=== PATIENT | female | born 1965 | race Caucasian/White ===

== ENCOUNTER 2019-01-16 12:04 | Emergency (ER) | payer MEDICAID, SELFPAY ==
[2019-01-16] VITALS (23 sets, daily range): BP systolic 103–153; BP diastolic 65–119; PULSE 96–121; RESP 24; TEMP 36.7; O2SAT 91–98
--- NOTE | 2019-01-16 12:01 | ED.GENADUL_ITS ---
Discharge Plan Disposition Patient Disposition: HOME Condition: Stable Discharge Details Chief Complaint: GenMedical Clinical Impression: First degree burn, Strain of right knee and leg, Contusion of right hip Primary Care Provider: Ya Moreno ED Provider: Otilia Rojas Home Meds and New Rx's Prescriptions: Continued lorazepam 1 mg Tablet 1 mg PO DAILY RF: 0 bupropion HCl [Wellbutrin XL] 150 mg Tablet Extended Release 24 Hr 150 mg PO QAM RF: 0 cholecalciferol (vitamin D3) [Vitamin D3] 2,000 unit Capsule 2,000 unit PO DAILY RF: 0 metoprolol succinate 25 mg Tablet Extended Release 24 Hr 25 mg PO RF: 0 montelukast [Singulair] 10 mg Tablet 10 mg PO QPM RF: 0 loratadine [Claritin] 10 mg Tablet 10 mg PO DAILY RF: 0 tizanidine [Zanaflex] 2 mg Capsule 2 mg PRNRF: 0 dicyclomine [Bentyl] 10 mg/mL Solution 20 mg QID RF: 0 atorvastatin 20 mg Tablet 20 mg PO DAILY RF: 0 Discharge Instructions Instructions: Muscle Strain (ED), Superficial Burn (ED), Acute Wound Care (ED), Contusion in Adults (ED) Additional Instructions: Take Tylenol every 4 hours as needed and directed for pain. Take the oxycodone for pain not relieved with Tylenol. Wash the robledo with soap and water and pat dry and apply topical aloe daily. Apply topical antibiotic ointment twice daily if you develop any blisters or open wounds. Follow-up with your primary care doctor in 2 days for reevaluation. Return immediately to the emergency department if you develop any worsening or new concerning symptoms of fever, chills, worsening pain. Discharge Data Discharge Physician: Otilia Rojas Medical Decision Making 53-year-old female with history of chronic pain, hypertension, peptic ulcer disease, gastroparesis who presents with bilateral forearm thermal robledo due to spilling boiling water and right leg pain status post slip on water today. EMS noted heart rate to be 110s, remainder vitals within normal limits. Patient states she cannot take NSAIDs or aspirin due to history of PUD and gastroparesis. She has an approximately 2% surface area first-degree burn to left volar forearm with very minimal involvement of edge of palm of hand and approximately a 1.5% surface area first-degree burn to right volar forearm. No open wounds or blisters noted. Tenderness to palpation of right buttock right posterior thigh right posterior knee. No bony deformity noted. Neurovascularly intact. Superficial robledo to forearms were irrigated and Silvadene cream and nonadherent dressings applied. A right hip and pelvis, right femur, and right knee x-ray were negative for acute findings. Patient denied any relief with oxycodone p.o. and was given a dose of morphine and Valium p.o. and had relief of pain. Due to her chronic left shoulder pain, she did not want crutches or cane and requested a walker. Care management brought a walker and patient was able to ambulate. She was instructed on the importance of good wound care to her forearm wounds an d to apply topical antibiotic ointment if any signs of open wounds or blisters. She cannot take NSAIDs. She takes Wellbutrin, Ativan and Zanaflex at home. She was sent home with 3 tabs of oxycodone and requested zofran due to nausea with opioids. She is instructed to follow-up with a primary care doctor for reevaluation and to return here if worse. HPI General Mode of arrival: ambulatory . Date/Time Provider Initiated Documentation: 01/16/19 12:17 . Limitations to Documentation: no limitations . Information obtained by: patient . HPI Narrative: Patient is a 53-year-old female who presents with bilateral robledo to forearms and right leg pain status post fall this morning. Patient states she was carrying a heavy pot of boiling water which dropped and the boiling water spilled on her forearms and she then slipped and her R leg twisted backward and she fell onto her bottom and now she also has pain in her R hip, buttock, thigh and knee. She denies head injury, LOC, vomiting, neck pain, chest pain, abdominal pain or other extremity injury. Tetanus up-to-date. Patient has a history of chronic left shoulder pain due to shoulder surgery and states she is not supposed to be carrying heavy objects and feels that her left shoulder became weak while carrying the pot and that caused her to drop it. Related Data Home Medications Medication Instructions Recorded Confirmed atorvastatin 20 mg PO DAILY 01/16/19 01/16/19 bupropion HCl [Wellbutrin XL] 150 mg PO QAM 01/16/19 01/16/19 cholecalciferol (vitamin D3) 2,000 unit PO DAILY 01/16/19 01/16/19 [Vitamin D3] dicyclomine [Bentyl] 20 mg QID 01/16/19 01/16/19 loratadine [Claritin] 10 mg PO DAILY 01/16/19 01/16/19 lorazepam 1 mg PO DAILY 01/16/19 01/16/19 metoprolol succinate 25 mg PO 01/16/19 montelukast [Singulair] 10 mg PO QPM 01/16/19 01/16/19 tizanidine [Zanaflex] 2 mg PRN 01/16/19 Allergies Allergy/AdvReac Type Severity Reaction Status Date / Time NSAIDS (Non-Steroidal Allergy Unverified 01/16/19 12:19 Anti-Inflamma Penicillins Allergy Unverified 01/16/19 12:19 Review of Systems Review of Systems All systems reviewed & are unremarkable except as noted in HPI and below Constitutional Reports as per HPI, Denies chills and Denies fever(s) Eyes Denies blurry vision ENT Denies dizziness, Denies sore throat and Denies throat swelling Cardiovascular Denies chest pain and Denies dyspnea Respiratory Denies cough and Denies dyspnea Gastrointestinal Denies abdominal pain, Denies diarrhea and Denies vomiting Genitourinary Denies hematuria and Denies dysuria Musculoskeletal Denies back pain and Denies numbness Integumentary/Breasts Denies lesions and Denies rash Neurologic Denies dizziness, Denies focal weakness and Denies numbness Allergic/Immunologic Denies throat swelling [facility] Medical History Gastroparesis (Acute) History of IBS (Acute) Chronic pain syndrome (Chronic) HTN (hypertension) (Chronic) Peptic ulcer disease (Chronic) Surgical History History of tonsillectomy and adenoidectomy (Acute) H/O section (Chronic) H/O shoulder surgery (Chronic) History of appendectomy (Chronic) Social History Smoking/Tobacco Use Status: Current every day Tobacco Type: cigarettes Alcohol Intake: never Drug use: Never Do you feel safe at home: Yes Exam Const General: cooperative and healthy appearing Orientation: alert and awake [facility] Head: normal to inspection, no palpable skull fracture, normocephalic and atraumatic Head images: 1. Minimal erythema approximately 0.25% surface area first degree burn. Ears: hearing grossly normal bilaterally, external ears normal and TM's normal bilaterally General nose exam: external nose normal Face and sinus: normal facial exam Mouth: oral mucosae normal Teeth and gingiva: dentition normal Throat: posterior oropharynx normal Eyes General: appearance normal, both eyes and all related structures Eyelids: eyelids normal Pupils: PERRL EOM: EOM intact bilaterally Neck Neck: normal visual inspection Lymphatic: no lymphadenopathy noted Chest Chest: normal inspection of the chest Resp Effort & Inspection: normal respiratory effort and able to speak in complete sentences Auscultation: clear to auscultation bilaterally Cardio Rate: regular rate Rhythm: regular rhythm GI Inspection: normal to inspection Palpation: soft, not firm, no guarding, no hepatosplenomegaly, no masses and nontender Auscultation: normal bowel sounds Back/Spine/Pelvis Back: no CVA tenderness Skin General skin exam: no rashes or lesions noted Neuro General: alert and awake Cognition: normal cognition Speech: speech normal Gait: normal gait Motor: muscle tone normal throughout Sensory Exam: no sensory deficits noted Extrem General: normal to inspection, full ROM and normal capillary refill Elbow/forearm/wrist images: 1. Approximately 2% surface area first degree burn to L volar forearm proximal medial edge of palm of hand. No blisters or open wounds 2. Approximately 1.5% surface area first degree burn to R volar forearm. No involvement of hand. No blisters or open wounds. Other: Tenderness palpation of right buttock, right posterior thigh and right knee. No bony deformity noted. No right leg external rotation or shortening. Bilateral DP/PT pulses intact. Bilateral radial and ulnar pulses intact. Cap refill less than 2 seconds. Psych Appearance: grossly normal Mental Status: mental status grossly normal Speech and Movement: speech and movement normal Affect: normal affect Thought Process: normal
--- NOTE | 2019-01-16 12:17 | DI.RAD_ITS ---
SYMPTOM/DIAGNOSIS: S/P FALL, PAIN, ? FX RIGHT HIP AND PELVIS: Two views were obtained. There are mild degenerative changes of both hips. There is no evidence of acute fracture. RIGHT KNEE: Three views were obtained. No fracture is seen. RIGHT FEMUR: Four views were obtained. No fracture is seen.
[2019-01-16] MEDS: oxyCODONE 5 MG TAB PO (12:26)
[2019-01-16] MEDS: Normal Saline 1,000 ML 1000 ML IV (12:42)
[2019-01-16] MEDS: Ondansetron O.D.T. 4 MG TABEF (12:44)
[2019-01-16] MEDS: diazePAM 5 MG TAB PO (13:45)
--- NOTE | 2019-01-16 14:14 | DI.VRAD_ITS ---
EXAM: XR Right Femur EXAM DATE/TIME: 01/16/2019 12:21 PM CLINICAL HISTORY: 53 years old, female; Other: S/P fall, R/O acute fracture TECHNIQUE: Imaging protocol: XR Right femur. Views: 2 views. COMPARISON: No relevant prior studies available. FINDINGS: Bones/joints: No acute bony injury or malalignment. Mild degenerative change. Soft tissues: Calcification at the quadriceps tendon attachment sites. Gastrointestinal tract: Prominent stool. IMPRESSION: No acute bony injury or malalignment. Dictated and Authenticated by: Vishnu Loredo MD. Ordering:FELICIANO Bingham MD
--- NOTE | 2019-01-16 14:14 | DI.VRAD_ITS ---
EXAM: XR Right Knee EXAM DATE/TIME: 01/16/2019 12:21 PM CLINICAL HISTORY: 53 years old, female; Other: S/P fall, R/O acute fracture TECHNIQUE: Imaging protocol: XR Right knee. Views: 3 views. COMPARISON: No relevant prior studies available. FINDINGS: Bones/joints: No acute bony injury or malalignment. Soft tissues: 2 mm medial soft tissue calcification. IMPRESSION: No acute bony injury or malalignment. Dictated and Authenticated by: Vishnu Loredo MD. Ordering:FELICIANO Bingham MD
--- NOTE | 2019-01-16 14:15 | DI.VRAD_ITS ---
EXAM: XR Pelvis EXAM DATE/TIME: 01/16/2019 12:21 PM CLINICAL HISTORY: 53 years old, female; Other: S/P fall, R/O acute fracture TECHNIQUE: Imaging protocol: XR pelvis. Views: 1 or 2 view. COMPARISON: CR BILATERAL HIPS ADULT 08/03/2013 2:44 PM FINDINGS: Bones/joints: No acute bony injury or malalignment. Mild degenerative change. Soft tissues: Calcification at the gluteal muscle attachment sites. Gastrointestinal tract: Prominent stool. Vasculature: Vascular calcification. IMPRESSION: No acute bony injury or malalignment. Dictated and Authenticated by: Vishnu Loredo MD. Ordering:FELICIANO Bingham MD
--- NOTE | 2019-01-16 14:50 | PDOC.ERCMPRO ---
- If Service Date Differs Date of service: 01/16/19 Time of Service: 14:50 Care Management Progress Note S/O: CM met with Beverley at the bedside both of her arms are bandaged and she states she has pain in her right leg r/t injury at home. She is in need of FWW at the request of ED provider CM filled FWW through [employer]. Pt states she has other equipment through [employer] and this is her DME company of choice. CM reviewed insurance benefits with the patient and cost of the FWW. Pt agrees and FWW was provided. CM updated provider and nurse who will adjust the walker to pt height. Pt states she has transportation home. Pt states she has lots of support at home and feels comfortable being discharged without additional services. P: Discharged home with FWW coordinated by CM through [employer]. No other CM services required at this time.
--- NOTE | 2019-01-16 14:56 | CMPROGNOTE_ITS ---
- If Service Date Differs Date of service: 01/16/19 Time of Service: 14:50 Care Management Progress Note S/O: CM met with Beverley at the bedside both of her arms are bandaged and she states she has pain in her right leg r/t injury at home. She is in need of FWW at the request of ED provider CM filled FWW through [employer]. Pt states she has other equipment through [employer] and this is her DME company of choice. CM reviewed insurance benefits with the patient and cost of the FWW. Pt agrees and FWW was provided. CM updated provider and nurse who will adjust the walker to pt height. Pt states she has transportation home. Pt states she has lots of support at home and feels comfortable being discharged without additional services. P: Discharged home with FWW coordinated by CM through [employer]. No other CM services required at this time.
[2019-01-16] MEDS: oxyCODONE 5 MG TAB 15 MG PO (15:16)
[2019-01-16] MEDS: Ondansetron O.D.T. 4 MG TABEF 12 MG PO (15:17)
== END 2019-01-16 15:29 | disposition home or self-care (01) ==
PROVIDERS: Emergency Provider Physician Assistant; PCP Nurse Practitioner Family
DX: T22.111A Burn of first degree of right forearm, initial encounter (principal); T22.112A Burn of first degree of left forearm, initial encounter; I10 Essential (primary) hypertension; T31.0 Burns involving less than 10% of body surface; X12.XXXA Contact with other hot fluids, initial encounter; S70.01XA Contusion of right hip, initial encounter; S76.911A Strain of unspecified muscles, fascia and tendons at thigh level, right thigh, initial encounter; W01.0XXA Fall on same level from slipping, tripping and stumbling without subsequent striking against object, initial encounter
CPT/HCPCS: 16000; 73552; 73562; 96361; 96374; 99284; 72170; 99282

== ENCOUNTER 2019-11-17 09:43 | Emergency (ER) | payer MEDICAID, SELFPAY ==
[2019-11-17] VITALS (39 sets, daily range): BP systolic 96–159; BP diastolic 54–101; PULSE 75–117; RESP 8–22; TEMP 36.7–37.2; O2SAT 91–99
--- NOTE | 2019-11-17 09:54 | W.ED.GENAD ---
Discharge Plan Disposition Patient Disposition: HOME Condition: Stable Discharge Details Chief Complaint: SOB Clinical Impression: Acute bronchitis Primary Care Provider: Eden Davila ED Provider: Otilia Rojas Home Meds and New Rx's Prescriptions: New prednisone 20 mg tablet See Rx Instructions .ROUTE .COMPLEX Qty: 12 RF: 0 levofloxacin [Levaquin] 750 mg tablet 750 mg PO DAILY 5 Days Qty: 5 RF: 0 benzonatate [Tessalon Perles] 100 mg capsule 100 mg PO TID PRN (Reason: cough) Qty: 14 RF: 0 Continued lorazepam 1 mg Tablet 1 mg PO DAILY RF: 0 bupropion HCl [Wellbutrin XL] 150 mg Tablet Extended Release 24 Hr 150 mg PO QAM RF: 0 cholecalciferol (vitamin D3) [Vitamin D3] 2,000 unit Capsule 2,000 unit PO DAILY RF: 0 metoprolol succinate 25 mg Tablet Extended Release 24 Hr 25 mg PO RF: 0 loratadine [Claritin] 10 mg Tablet 10 mg PO DAILY RF: 0 atorvastatin 20 mg Tablet 20 mg PO DAILY RF: 0 loperamide 2 mg Tablet 2 mg PO Q4H PRNRF: 0 ondansetron 4 mg tablet,disintegrating RF: 0 esomeprazole magnesium [Nexium] 20 mg Capsule,Delayed Release(Dr/Ec) 40 mg PO DAILY RF: 0 albuterol sulfate [ProAir HFA] 90 mcg/actuation HFA aerosol inhaler INHALATION RF: 0 escitalopram oxalate 20 mg tablet RF: 0 cyclobenzaprine 5 mg tablet RF: 0 Trelegy Ellipta 100-62.5-25 mcg blister with device INHALATION RF: 0 Aimovig Autoinjector 140 mg/mL Auto-Injector SUBCUT RF: 0 Discharge Instructions Instructions: Acute Bronchitis (ED) Additional Instructions: Use your albuterol inhaler that you have at home as needed and directed for cough or shortness of breath. Alternate tylenol and motrin as needed and directed for pain or fever. Take the steroids and antibiotics until finished. Call your primary care doctor's office tomorrow to schedule a follow-up appointment for reevaluation. Return to the emergency department if you develop any worsening or new concerning symptoms. Stand Alone Forms: PENDING COVID-19 TESTING Discharge Data Discharge Physician: Otilia Rojas Medical Decision Making 1000 -- 54-year-old female with history of COPD, tobacco smoking, hypertension, chronic pain syndrome presents for fever, cough, chest pain and shortness of breath for 3 weeks, worse over the past 6 days. Treated with steroids and antibiotics with some relief recently. She is chronically on Zithromax for the past year. She uses 1 L O2 occasionally at night for her COPD. BP mildly hypertensive. Heart rate 110s. Remainder vitals within normal limits. Oxygen saturation normal on room air. She is hoarse but speaking in full sentences. Differential diagnosis includes bronchitis, pneumonia, COVID-19, ACS, PE. Will check screening labs, CT chest abdomen and pelvis, give neb, Solu-Medrol and fluids. EKG notes a rate of 109, sinus with no acute ST ischemic changes. 1300 --labs reviewed. Normal white blood cell count, coagulation studies, electrolytes. Troponin negative. BNP unremarkable at 303. Patient reassessed -she admits to some improvement after first neb. O2 sat 92 to 94%. She still has diminished breath sounds throughout. Will give another neb and reassess. CT pending. 1415 --CT negative. Patient reassessed -she feels much better and is requesting to go home. O2 saturation 97% on room air. Lung sounds improved. As she is a smoker, will treat with Levaquin in addition to steroids and cough medication. She has albuterol at home. Advised to follow up with the primary care doctor for re-evaluation. Usual and customary return precautions given prior to discharge. She was advised that COVID-19 testing still pending and she will be notified of results. Medical Records Medical records reviewed: Yes I reviewed the patient's medical records. Imaging Data Radiologic Study: Radiologist's impression: CT CHEST PE ABD PELVIS W CLINICAL HISTORY: cough, sob, chest pain, vomiting, upper abd pain. TECHNIQUE: Imaging Protocol: Axial CT angiography was performed with multi-slice acquisition and multi-planar and/or 3D reconstructions. CONTRAST MATERIAL: Intravenous: Omnipaque 350 Contrast volume:100 ml COMPARISON: CHEST 2 VIEWS PA,LAT from 10/08/2010 FINDINGS: Pulmonary Arteries: No evidence of filling defect to suggest pulmonary emboli. Enlarged main pulmonary artery with the a diameter of 3.6 cm. The main pulmonary arteries also appear prominent. Tracheobronchial tree: Patent where visualized. Mediastinum and Nkechi: No dominant adenopathy or fluid collection. Pulmonary parenchyma: No consolidation or dominant measurable mass. There is mild interstitial thickening seen in the upper lobes. Pleura: No effusion or pneumothorax. Heart: The heart is not dilated. No coronary artery calcifications are seen. Aorta: Thoracic aorta non-dilated. Mild calcification. Upper abdomen: Unremarkable. Bones: Degenerative disc changes. Abdomen pelvis: The patient is status post cholecystectomy. The liver, spleen, pancreas and adrenals are unremarkable. There are small renal cysts. No stones or hydronephrosis is seen. There is no bowel dilatation or inflammatory change. The bladder is unremarkable. The patient is status post hysterectomy. The aorta is calcified and normal in diameter. Degenerative disc changes are seen in the lumbar spine. IMPRESSION: No acute abnormality is seen in the chest abdomen or pelvis. No evidence of pulmonary embolism. Lab Data Lab results reviewed: Yes I reviewed the patient's lab results. Labs: 11/17/19 11:21 Blood Blood Culture - Pending 11/17/19 10:55 Tonsil - Not Specified Streptococcus Screen (CHALO) - Pending 11/17/19 11:07 Blood Blood Culture - Pending Laboratory Tests Range/Units 11/17/19 11/17/19 11/17/19 10:31 10:31 10:31 WBC (4.4-10.8) k/cumm 8.89 RBC (4.00-5.20) m/cumm 4.59 Hgb (12.0-15.5) g/dL 14.9 Hct (36.0-46.0) % 43.9 MCV (80-95) fL 95.6 H MCH (27.0-33.0) pg 32.5 MCHC (32.0-36.0) g/dL 33.9 RDW (11.7-14.6) % 13.9 Plt Count (130-400) x1000/uL 278 MPV (8.0-11.0) fL 9.0 Immature Gran % % 0.2 Neutrophils % 59.7 Lymphocytes % 29.6 Monocytes % 7.4 Eosinophils % 2.8 Basophils % 0.3 Absolute Neutrophils (1.2-6.7) k/cumm 5.30 Absolute Lymphocytes (1.2-3.4) k/cumm 2.63 Absolute Monocytes (0.11-0.7) k/cumm 0.66 Absolute Eosinophils (0.0-0.7) k/cumm 0.25 Absolute Basophils (0.0-0.2) k/cumm 0.03 PT (9.3-11.0) sec 10.4 INR (0.9-1.1) 1.0 APTT (21.0-31.4) sec 24.9 Sodium (136-145) mmol/L 138 Potassium (3.5-5.1) mmol/L 3.7 Chloride (98-107) mmol/L 101 Carbon Dioxide (21.0-32.0) mmol/L 26.5 Anion Gap (3-11) mmol/L 10.5 BUN (7-18) mg/dL 7 Creatinine (0.55-1.02) mg/dL 0.82 Estimated GFR/1.73 m2 (mL/min/1.73m2) >= 60.00 Glucose (74-106) mg/dL 132 H Lactate (0.6-1.4) mmol/L Calcium (8.5-10.1) mg/dL 9.2 Magnesium (1.8-2.4) mg/dL 1.9 Total Bilirubin (0.2-1.0) mg/dL 0.5 AST (15-37) U/L 18 ALT (14-59) U/L 35 Alkaline Phosphatase (46-116) U/L 78 Troponin I (<0.06) ng/Ml < 0.05 NT-Pro-B Natriuret Pep (<300) pg/mL 303 H Total Protein (6.4-8.2) g/dL 7.9 Albumin (3.4-5.0) g/dL 3.9 Lipase (73-393) U/L Range/Units 11/17/19 11/17/19 10:31 11:07 WBC (4.4-10.8) k/cumm RBC (4.00-5.20) m/cumm Hgb (12.0-15.5) g/dL Hct (36.0-46.0) % MCV (80-95) fL MCH (27.0-33.0) pg MCHC (32.0-36.0) g/dL RDW (11.7-14.6) % Plt Count (130-400) x1000/uL MPV (8.0-11.0) fL Immature Gran % % Neutrophils % Lymphocytes % Monocytes % Eosinophils % Basophils % Absolute Neutrophils (1.2-6.7) k/cumm Absolute Lymphocytes (1.2-3.4) k/cumm Absolute Monocytes (0.11-0.7) k/cumm Absolute Eosinophils (0.0-0.7) k/cumm Absolute Basophils (0.0-0.2) k/cumm PT (9.3-11.0) sec INR (0.9-1.1) APTT (21.0-31.4) sec Sodium (136-145) mmol/L Potassium (3.5-5.1) mmol/L Chloride (98-107) mmol/L Carbon Dioxide (21.0-32.0) mmol/L Anion Gap (3-11) mmol/L BUN (7-18) mg/dL Creatinine (0.55-1.02) mg/dL Estimated GFR/1.73 m2 (mL/min/1.73m2) Glucose (74-106) mg/dL Lactate (0.6-1.4) mmol/L 1.3 Calcium (8.5-10.1) mg/dL Magnesium (1.8-2.4) mg/dL Total Bilirubin (0.2-1.0) mg/dL AST (15-37) U/L ALT (14-59) U/L Alkaline Phosphatase (46-116) U/L Troponin I (<0.06) ng/Ml NT-Pro-B Natriuret Pep (<300) pg/mL Total Protein (6.4-8.2) g/dL Albumin (3.4-5.0) g/dL Lipase (73-393) U/L 130 ECG Data Attestation: I personally reviewed and interpreted this ECG (s) as follows: Interpretation: Rate of 109, sinus, no acute ST elevation or depression. VA 172. QTc 460. QRS 94. HPI General Mode of arrival: ambulatory. Date/Time Provider Initiated Documentation: 11/17/19 09:52. Limitations to Documentation: no limitations. Information obtained by: patient. HPI Narrative: Patient is a 54-year-old female with history of COPD, chronic pain syndrome who is a tobacco smoker presents for fever, cough, shortness of breath and chest pain over the past 3 weeks, worse over the past 6 days. Patient states she was treated by her PCP for bronchitis a few weeks ago with steroids and antibiotics and states the symptoms improved but worsened 6 days ago. She now also admits to vomiting and diarrhea. She states she has been vomiting mainly bile and diarrhea is watery brown. She admits to some upper abdominal pain which she assumes is from her vomiting. She states the symptom bothering her the most is the anterior chest pain and shortness of breath. She states her fever has been as high as 101 p.o. She denies any recent travel, known sick contacts or previous coronavirus testing. Related Data Home Medications Medication Instructions Recorded Confirmed atorvastatin 20 mg PO DAILY 01/16/19 11/17/19 bupropion HCl [Wellbutrin XL] 150 mg PO QAM 01/16/19 11/17/19 cholecalciferol (vitamin D3) 2,000 unit PO DAILY 01/16/19 11/17/19 [Vitamin D3] loratadine [Claritin] 10 mg PO DAILY 01/16/19 01/16/19 lorazepam 1 mg PO DAILY 01/16/19 11/17/19 metoprolol succinate 25 mg PO 01/16/19 Aimovig Autoinjector mg SUBCUT 11/17/19 Trelegy Ellipta INHALATION 11/17/19 albuterol sulfate [ProAir HFA] INHALATION 11/17/19 benzonatate [Tessalon Perles] 100 mg PO TID PRN #14 cap 11/17/19 cyclobenzaprine mg 11/17/19 escitalopram oxalate mg 11/17/19 esomeprazole magnesium [Nexium] 40 mg PO DAILY 11/17/19 11/17/19 levofloxacin [Levaquin] 750 mg PO DAILY 5 Days #5 tab 11/17/19 loperamide 2 mg PO Q4H PRN 11/17/19 11/17/19 ondansetron 11/17/19 prednisone See Rx Instructions .ROUTE 11/17/19 .COMPLEX #12 tab Previous Rx's Medication Instructions Recorded benzonatate [Tessalon Perles] 100 mg PO TID PRN #14 cap 11/17/19 levofloxacin [Levaquin] 750 mg PO DAILY 5 Days #5 tab 11/17/19 prednisone See Rx Instructions .ROUTE 11/17/19 .COMPLEX #12 tab Allergies Allergy/AdvReac Type Severity Reaction Status Date / Time NSAIDS (Non-Steroidal Allergy Unverified 01/16/19 12:19 Anti-Inflamma Penicillins Allergy Unverified 01/16/19 12:19 aspirin AdvReac Unverified 11/17/19 09:59 General KIERA: 3 Review of Systems All systems reviewed & are unremarkable except as noted in HPI and below Constitutional Constitutional: Reports as per HPI, Denies chills and Denies fever(s) Eyes Eyes: Denies blurry vision ENT Ears, Nose, Mouth, and Throat: Denies dizziness, Denies sore throat and Denies throat swelling Cardiovascular Cardiovascular: Reports chest pain and Reports dyspnea Respiratory Respiratory: Reports cough and Reports dyspnea Gastrointestinal Gastrointestinal: Denies abdominal pain, Denies diarrhea and Denies vomiting Genitourinary Genitourinary: Denies hematuria and Denies dysuria Musculoskeletal Musculoskeletal: Denies back pain and Denies numbness Integumentary/Breasts Skin/Breast: Denies lesions and Denies rash Neurologic Neurologic: Denies dizziness, Denies localized weakness and Denies numbness Allergic/Immunologic Allergic/Immunologic: Denies throat swelling [facility], [facility] Social History Smoking/Tobacco Use Status: Current every day Tobacco Type: cigarettes Alcohol Intake: never Drug use: Never Do you feel safe at home: Yes Do you feel safe in your relationship?: Yes Exam Const General: cooperative and no acute distress Orientation: alert, awake and oriented x3 HENMT Head: normal to inspection Ears: hearing grossly normal bilaterally, external ears normal and TM's normal bilaterally General nose exam: external nose normal Face and sinus: normal facial exam Mouth: oral mucosae normal Teeth and gingiva: dentition normal Throat: posterior oropharynx normal Eyes General: appearance normal, both eyes and all related structures Eyelids: eyelids normal Pupils: PERRL EOM: EOM intact bilaterally Neck Neck: normal visual inspection Lymphatic: no lymphadenopathy noted Chest Chest: normal inspection of the chest Resp Effort & Inspection: normal respiratory effort and able to speak in complete sentences Auscultation: diminished lung sounds bilaterally throughout Cardio Rhythm: regular rhythm GI Inspection: normal to inspection Palpation: soft, not firm, no guarding, no hepatosplenomegaly, no masses and tender in the epigastrum Auscultation: hypoactive bowel sounds Back/Spine/Pelvis Back: CVA tenderness (L side) Thoracic/Lumbar Spine: thoracic and lumbar spine normal to inspection Skin General skin exam: no rashes or lesions noted Neuro General: patient alert and patient awake Cognition: normal cognition Speech: speech normal Gait: normal gait Motor: muscle tone normal throughout Sensory Exam: no sensory deficits noted Extrem General: normal to inspection, full ROM, capillary refill normal and no edema Psych Appearance: grossly normal Mental Status: mental status grossly normal Speech and Movement: speech and movement normal Affect: normal affect Thought Process: normal
[2019-11-17 10:40] LABS: Abs Immature Grans 0.02 k/cumm (0.0-0.09); Absolute Basophil Count 0.03 k/cumm (0.0-0.2); Absolute Eosinophil Count 0.25 k/cumm (0.0-0.7); Absolute Lymphocyte Count 2.63 k/cumm (1.2-3.4); Absolute Monocyte Count 0.66 k/cumm (0.11-0.7); Basophils % 0.3; Eosinophils % 2.8; HCT 43.9 % (36.0-46.0); HGB 14.9 g/dL (12.0-15.5); Immature Grans % 0.2 %; Lymphocytes % 29.6; Mean Corp. HGB Concentration 33.9 g/dL (32.0-36.0); Mean Corpuscular Hemoglobin 32.5 pg (27.0-33.0); Mean Corpuscular Volume 95.6 fL (80-95); Monocytes % 7.4; Neutrophils % 59.7; Platelet Count 278 x1000/uL (130-400); RBC 4.59 m/cumm (4.00-5.20); RBC Distribution Width 13.9 % (11.7-14.6); White Blood Cell Count 8.89 k/cumm (4.4-10.8)
[2019-11-17 10:55] LABS: PTT Activated 24.9 sec (21.0-31.4); Prothrombin Time 10.4 sec (9.3-11.0)
[2019-11-17 11:04] LABS: ALT 35 U/L (14-59); AST 18 U/L (15-37); Albumin 3.9 g/dL (3.4-5.0); Alkaline Phosphatase 78 U/L (46-116); Anion Gap 10.5 mmol/L (3-11); BUN 7 mg/dL (7-18); Bilirubin, Total 0.5 mg/dL (0.2-1.0); CO2 26.5 mmol/L (21.0-32.0); CREATININE 0.82 mg/dL (0.55-1.02); Calcium 9.2 mg/dL (8.5-10.1); Chloride 101 mmol/L (98-107); Glucose 132 mg/dL (74-106); Magnesium 1.9 mg/dL (1.8-2.4); NT-proBNP 303 pg/mL (<300); Potassium 3.7 mmol/L (3.5-5.1); Sodium 138 mmol/L (136-145); Total Protein 7.9 g/dL (6.4-8.2); Troponin I < 0.05 ng/Ml (<0.06)
[2019-11-17 11:12] LABS: Lipase 130 U/L (73-393)
[2019-11-17 11:13] LABS: Lactate 1.3 mmol/L (0.6-1.4)
[2019-11-17] MEDS: Normal Saline 1,000 ML 1000 ML IV (11:27)
[2019-11-17] MEDS: methylPREDNISolone SUCC 125 MG VIAL IVP (11:28)
[2019-11-17] MEDS: Albuterol/Ipratropium 3 ML UPD VIAL UPD (11:28)
[2019-11-17] MEDS: ACETAMINOPHEN 1,000 MG/100 ML BTL 400 MG IVPB (11:28)
[2019-11-17] MEDS: Prochlorperazine 10 MG/2 ML VIAL IVP (11:29)
[2019-11-17] MEDS: Normal Saline - Diluent 50 ML VIAL IV (12:21)
[2019-11-17] MEDS: Omnipaque 350 MG/ML 100 ML BTL IJ (12:21)
--- NOTE | 2019-11-17 12:35 | DI.CT_ITS ---
EXAM: CT CHEST PE ABD PELVIS W CLINICAL HISTORY: cough, sob, chest pain, vomiting, upper abd pain. TECHNIQUE: Imaging Protocol: Axial CT angiography was performed with multi-slice acquisition and mu lti-planar and/or 3D reconstructions. CONTRAST MATERIAL: Intravenous: Omnipaque 350 Contrast volume:100 ml COMPARISON: CHEST 2 VIEWS PA,LAT from 10/08/2010 FINDINGS: Pulmonary Arteries: No evidence of filling defect to suggest pulmonary emboli. Enlarged main pulmonar y artery with the a diameter of 3.6 cm. The main pulmonary arteries also appear prominent. Tracheobronchial tree: Patent where visualized. Mediastinum and Nkechi: No dominant adenopathy or fluid collection. Pulmonary parenchyma: No consolidation or dominant measurable mass. There is mild interstitial thicke bobo seen in the upper lobes. Pleura: No effusion or pneumothorax. Heart: The heart is not dilated. No coronary artery calcifications are seen. Aorta: Thoracic aorta non-dilated. Mild calcification. Upper abdomen: Unremarkable. Bones: Degenerative disc changes. Abdomen pelvis: The patient is status post cholecystectomy. The liver, spleen, pancreas and adrenals are unremarkable. There are small renal cysts. No stones or hydronephrosis is seen. There is no b owel dilatation or inflammatory change. The bladder is unremarkable. The patient is status post hys terectomy. The aorta is calcified and normal in diameter. Degenerative disc changes are seen in the lumbar spine. IMPRESSION: No acute abnormality is seen in the chest abdomen or pelvis. No evidence of pulmonary embolism. RADIATION DOSE DELIVERED: Total DLP DATA REPOSITORY: All CT scans at this facility are submitted to the National Radiology Data Registry (NRDR) Dose Index Registry (DIR) with the [employer] (ACR). RADIATION OPTIMIZATION: All CT scans at this facility use at least one of these dose optimization te chniques: automated exposure control; mA and/or kV adjustment per patient size (includes targeted exa ms where dose is matched to clinical indication); or iterative reconstruction.
[2019-11-17] MEDS: Albuterol 2.5 MG/3 ML INH SOLN VIAL UPD (13:30)
[2019-11-18 16:02] LABS: COVID-19 RT-PCR Result Not Detected ((See Note))
== END 2019-11-17 14:43 | disposition home or self-care (01) ==
PROVIDERS: Emergency Provider Physician Assistant; PCP Registered Nurse
DX: J44.0 Chronic obstructive pulmonary disease with (acute) lower respiratory infection (principal); J20.9 Acute bronchitis, unspecified; F17.210 Nicotine dependence, cigarettes, uncomplicated; I10 Essential (primary) hypertension
CPT/HCPCS: 36415; 71275; 74177; 80053; 83690; 87040; 87880; 93005; 94640; 96361; 96374; 96375; 99285; U0003; 83605; 83735; 83880; 84484; 85025; 85610; 85730; 87081; 93010; 99284; J0131; J0780; J2930; J3490; J7613; J7620

== ENCOUNTER 2019-12-23 02:27 | Outpatient (CLI) | payer MEDICAID, SELFPAY ==
[2019-12-23 15:26] LABS: Abs Immature Grans 0.02 k/cumm (0.0-0.09); Absolute Basophil Count 0.03 k/cumm (0.0-0.2); Absolute Eosinophil Count 0.19 k/cumm (0.0-0.7); Absolute Lymphocyte Count 3.23 k/cumm (1.2-3.4); Absolute Monocyte Count 0.84 k/cumm (0.11-0.7); Absolute Neutrophil Count 5.84 k/cumm (1.2-6.7); Basophils % 0.3; Eosinophils % 1.9; HCT 44.6 % (36.0-46.0); HGB 15.2 g/dL (12.0-15.5); Immature Grans % 0.2 %; Lymphocytes % 31.8; Mean Corp. HGB Concentration 34.1 g/dL (32.0-36.0); Mean Corpuscular Hemoglobin 32.3 pg (27.0-33.0); Mean Corpuscular Volume 94.7 fL (80-95); Mean Platelet Volume 9.1 fL (8.0-11.0); Monocytes % 8.3; Neutrophils % 57.5; Platelet Count 307 x1000/uL (130-400); RBC 4.71 m/cumm (4.00-5.20); RBC Distribution Width 14.5 % (11.7-14.6); White Blood Cell Count 10.15 k/cumm (4.4-10.8)
[2019-12-23 15:58] LABS: Hemoglobin A1C 5.8 % (3.8-5.6)
[2019-12-23 16:17] LABS: ESR 15 mm/hr (0-30)
[2019-12-23 17:14] LABS: ALT 29 U/L (14-59); AST 20 U/L (15-37); Albumin 3.4 g/dL (3.4-5.0); Alkaline Phosphatase 72 U/L (46-116); Anion Gap 13.5 mmol/L (3-11); BUN 10 mg/dL (7-18); Bilirubin, Total 0.6 mg/dL (0.2-1.0); CO2 25.5 mmol/L (21.0-32.0); Calcium 8.7 mg/dL (8.5-10.1); Calculated LDL 71 mg/dL (<100); Chloride 104 mmol/L (98-107); Cholesterol 133 mg/dL (<200); Glucose 116 mg/dL (74-106); HDL Cholesterol 46 mg/dL (40-60); Magnesium 1.7 mg/dL (1.8-2.4); Sodium 143 mmol/L (136-145); Total Protein 6.5 g/dL (6.4-8.2); Triglyceride 82 mg/dL (<150)
[2019-12-23 18:23] LABS: Potassium 2.9 mmol/L (3.5-5.1)
[2019-12-27 16:50] LABS: Tissue Transglutaminase Ab IgA <1.2 U/mL
== END 2019-12-23 02:47 ==
PROVIDERS: PCP Registered Nurse; Visit Provider Registered Nurse
DX: R19.7 Diarrhea, unspecified (principal); R73.09 Other abnormal glucose; E78.5 Hyperlipidemia, unspecified
CPT/HCPCS: 36415; 80053; 80061; 85652; 83036; 83516; 83735; 85025

== ENCOUNTER 2019-12-23 18:55 | Emergency (ER) | payer MEDICAID, SELFPAY ==
[2019-12-23 19:09] VITALS: BP 153/82; PULSE 96; RESP 14; TEMP 36.6; O2SAT 96
--- NOTE | 2019-12-23 19:15 | DI.CT_ITS ---
EXAM: CT ABDOMEN PELVIS W CLINICAL HISTORY: diffuse abd pain, vomiting, diarrhea TECHNIQUE: Imaging Protocol: Axial computed tomography images with coronal and sagittal reformatted images were created and reviewed CONTRAST MATERIAL: Intravenous: Omnipaque 350 Contrast volume:100 mL Oral: No COMPARISON: CT CT CHEST PE ABD PELVIS W from 11/17/2019 FINDINGS: ABDOMEN: Lung Bases: Dependent atelectasis. Liver: Normal density. No measurable mass. Portal, Superior Mesenteric, and Splenic Veins: Unremarkable. Gallbladder and Biliary Tract: Status post cholecystectomy. Mildly dilated extrahepatic bile duct li rosalie reflecting post cholecystectomy state. Pancreas: Normal density, no abnormal calcifications or inflammatory process. Spleen: Normal. Adrenals: No masses seen. Kidneys: Normal size, contour and axis. No radiodense stones or obstructive uropathy. No masses seen. There is a new peripheral wedge-shaped area of decreased enhancement in the posterior aspect of the upper lobe of the left kidney. This was not present on the examination from 11/17/2019. There is a cy st in the left kidney. There is again seen a prominent right extrarenal pelvis. Abdominal Aorta: Abdominal portion non-dilated. Atherosclerosis. Bowel: No obstruction or bowel wall thickening. No evidence of acute appendicitis. Peritoneal Cavity: No ascites, collection or mesenteric inflammatory response. Lymph Nodes: Within normal limits. Bones: Degenerative changes in the spine. Soft Tissues: Unremarkable. PELVIS: Bladder: Symmetric distention, no gross wall thickening. Reproductive Organs: Status post hysterectomy. Lymph Nodes: Within normal limits. Bones: Degenerative changes in the spine. IMPRESSION: New area of decreased enhancement in the posterior superior aspect of the left kidney. This may repr esent renal infarct or focal pyelonephritis. Please correlate clinically. As this was not present o n the recent examination, mass is considered less likely. RADIATION DOSE DELIVERED: 917.07mGy.cm Total DLP DATA REPOSITORY: All CT scans at this facility are submitted to the National Radiology Data Registry (NRDR) Dose Index Registry (DIR) with the [employer] (ACR). RADIATION OPTIMIZATION: All CT scans at this facility use at least one of these dose optimization te chniques: automated exposure control; mA and/or kV adjustment per patient size (includes targeted exa ms where dose is matched to clinical indication); or iterative reconstruction.
--- NOTE | 2019-12-23 19:31 | ED.GENADUL_ITS ---
Discharge Plan Disposition Patient Disposition: HOME Condition: Good Discharge Details Chief Complaint: Abd Prob Clinical Impression: Abdominal pain, vomiting, and diarrhea, Acute hypokalemia, Kidney lesion Primary Care Provider: Eden Davila ED Provider: Flip Portillo Home Meds and New Rx's Prescriptions: No Action lorazepam 1 mg Tablet 1 mg PO BID RF: 0 bupropion HCl [Wellbutrin XL] 150 mg Tablet Extended Release 24 Hr 150 mg PO BID RF: 0 cholecalciferol (vitamin D3) [Vitamin D3] 2,000 unit Capsule 2,000 unit PO DAILY RF: 0 metoprolol succinate 25 mg Tablet Extended Release 24 Hr 25 mg PO AC RF: 0 loratadine [Claritin] 10 mg Tablet 10 mg PO DAILY RF: 0 atorvastatin 20 mg Tablet 20 mg PO HS RF: 0 azithromycin [Zithromax] 250 mg Tablet 250 mg PO DAILY RF: 0 loperamide 2 mg Tablet 2 mg PO PRN PRNRF: 0 acetaminophen [Tylenol 8 Hour] 650 mg Tablet Extended Release 650 mg PO BID RF: 0 ascorbic acid (vitamin C) [Vitamin C] 500 mg Tablet 500 mg PO DAILY RF: 0 esomeprazole magnesium [Nexium] 40 mg Capsule,Delayed Release(Dr/Ec) 40 mg PO AC RF: 0 magnesium 200 mg Tablet See Rx Instructions .ROUTE .COMPLEX RF: 0 escitalopram oxalate [Lexapro] 20 mg Tablet 20 mg PO DAILY RF: 0 Aimovig Autoinjector 140 mg/mL Auto-Injector See Rx Instructions .ROUTE .COMPLEX RF: 0 loperamide 2 mg Tablet 2 mg PO Q4H PRNRF: 0 ondansetron 4 mg tablet,disintegrating 4 mg PO BID PRNRF: 0 albuterol sulfate [ProAir HFA] 90 mcg/actuation HFA aerosol inhaler INHALATION RF: 0 escitalopram oxalate 20 mg tablet RF: 0 cyclobenzaprine 5 mg tablet RF: 0 Trelegy Ellipta 100-62.5-25 mcg blister with device INHALATION RF: 0 Aimovig Autoinjector 140 mg/mL Auto-Injector SUBCUT RF: 0 prednisone 20 mg tablet See Rx Instructions .ROUTE .COMPLEX Qty: 12 RF: 0 Discharge Instructions Instructions: Gastroenteritis (ED) Additional Instructions: At this time your CAT scan shows nothing life-threatening or surgical. There was the dilation of your right kidney which was likely from a passed kidney stone. There is also the atypical small lesion on your left kidney that is likely just a cyst but does require further work-up with renal ultrasound on an outpatient basis with your primary care provider. Please stick with a bland diet, eat bananas to help replace your potassium. If you notice any worsening of your symptoms, or any new symptoms such as vomiting, diarrhea, fever, chills, shortness of breath, chest pain, numbness, weakness, or fainting , please return immediately to the emergency department for reevaluation. Please follow up with your primary care provider as soon as possible for reassessment and reevaluation. As always, it was a pleasure participating in your medical care today. Referrals: Eden Davila [Primary Care Provider] - Medical Decision Making <Otilia Rojas DO - Last Filed: 12/23/19 20:14> 54-year-old female with history of hypertension, IBS, gastroparesis presents for vomiting, diarrhea and abdominal pain x 6 days. Outpatient labs today noted K 2.9. HR 90s, afebrile. She appears uncomfortable but nontoxic. Abdomen diffusely tender. Rectal exam noted brown stool and guaiac negative. Differential diagnoses includes gastroenteritis, colitis, diverticulitis, etc. Remainder of outpatient labs today noted a normal white blood cell count and electrolytes. Anion gap 13, Mg 1.7. Will place an IV, obtain a urinalysis, lipase, CT abdomen and pelvis, give a dose of morphine, Zofran, fluids and reassess. Case endorsed to Dr. Portillo to follow-up on labs and imaging and final disposition. Medical Records Medical records reviewed: Yes I reviewed the patient's medical records. <Flip Portillo DO - Last Filed: 12/23/19 22:24> EKG 20: 07 Sinus rhythm, rate 80, ID 112, QTc 475, QRS 94, sinus rhythm, with a slightly short ID but no evidence of delta wave whatsoever. Inverted T wave noted in V1 and V2, no significant ST depressions, no evidence of STEMI. Inversions appear to be new compared to prior EKG from 11/17/2019, however this may be due to the patient's low potassium. Patient was signed out to me by my colleague Dr. Otilia Rojas pending CT scan results, reassessment. CT scan results have returned, no evidence of acute surgical process noted per virtual radiology. There is evidence of right extrarenal pelvis is prominent, could be the result of a recent obstructive uropathy calculus having passed. Discussing this with the patient she does describe notable pain with urination recently but which is since resolved. I do suspect that she likely had a passed calculus. There is evidence of diminished enhancement of the left kidney which could represent a hypoenhancing mass or cyst or subacute infarct. Patient has no pain on the left-hand side. No indication for emergent management but the patient would benefit from follow-up with her PCP for further assessment and evaluation. At this time the patient is feeling much better, tolerating p.o. well, and feels good to go home. Patient's vital signs remained stable, no signs of acute process, I suspect that her symptoms likely from gastroenteritis gastritis. Potentially viral in etiology. Patient will be discharged home with close follow-up. Patient's troponin was negative, she describes as epigastric pain lasting for greater then 5 to 6 days, symptoms are inconsistent with cardiac etiology. 2 small T wave inversions have remained, but no other signs of abnormality, no STEMI, no elevation, no depression. No clinical signs of right heart strain. Denies PE risk factors such as recent long car rides, immobilization, recent surgery, prior history of DVT or PE, family history of PE or DVT, morbid obesity, exogenous estrogen and smoking, hemoptysis, history of cancer. No pitting edema, no chest pain, no chest tightness no shortness of breath. I did discuss continued observation, versus admission, versus discharge, and at this time through shared decision making process patient would like to go home and follow-up closely with her PCP. Discussed risks and benefits of this. Recommended bland diet, bananas, and close follow-up. I have extensively reviewed the treatment plan and discharge instructions with the patient. I have addressed all patient concerns at this time. The patient was made aware of what symptoms to monitor for that would warrant a return to the emergency department. Discussed the plan with the patient, they demonstrate verbal understanding and agreement with our assessment and plan at this time. EKG 20: 13 Rate 83, ID 112, QTc 472, sinus rhythm, slightly short ID, inverted T wave in V1 V2, no other acute changes, no evidence of STEMI, ST elevations or depressions, no other abnormalities. FINDINGS: Lungs: Subsegmental atelectasis and/or scarring in lingula and right middle lobe. Liver: Normal. No mass. Gallbladder and bile ducts: The patient is status post cholecystectomy. Minimal intra and extrahepatic biliary ductal dilatation. Pancreas: Pancreas appears normal. No ductal dilatation. Spleen: No splenomegaly. Adrenals: Normal adrenal glands. Kidneys and ureters: Irregularly-shaped, circumscribed area of diminished enhancement posterosuperiorly in upper pole of left kidney, measuring 2.7 cm. Too small to characterize subcentimeter hypoenhancing area or lesion in lower pole left kidney. No left hydronephrosis. Prominent extrarenal pelvis on the right. No obstructing right renal or ureteric calculi. No adenopathy. Stomach and bowel: The stomach is normal. No dilated loops of small bowel or c olonic dilatation. No bowel wall thickening or mucosal abnormalities. Appendix: No evidence of appendicitis. Intraperitoneal space: Unremarkable. No free air. No significant fluid collection. Vasculature: No aortic aneurysm or dissection. Atherosclerosis. Lymph nodes: See Kidneys and ureters finding. Bladder: Unremarkable as visualized. Reproductive: Prior hysterectomy. Bones/joints: The spine demonstrates mild degenerative changes at multiple levels. No acute fracture. Soft tissues: Unremarkable. IMPRESSION: 1. Prominent right extrarenal pelvis could be as a result of recent obstructive uropathy with calculus since passed. 2. Area of diminished enhancement left kidney could represent a hypoenhancing mass, irregularly shaped cyst or subacute infarct. Correlate with renal ultrasound. 3. Intra-and extrahepatic biliary ductal dilatation, most likely due to prior cholecystectomy and/or instrumentation of the biliary tract. Other etiologies not excluded. Correlation with serum bilirubin warranted. Thank you for allowing us to participate in the care of your patient. Dictated and Authenticated by: Paxton Westbrook DO 12/23/2019 8:57 PM Eastern Time ([place] & [place]) HPI <Otilia Rojas DO - Last Filed: 12/23/19 20:14> General Mode of arrival: ambulatory . Date/Time Provider Initiated Documentation: 12/23/19 18:58 . Limitations to Documentation: no limitations . Information obtained by: patient . HPI Narrative: Patient is a 54-year-old female with a history of hypertension, IBS, gastroparesis, appendectomy, cholecystectomy who presents for vomiting, diarrhea and abdominal pain for the past 6 days. She states she has had multiple episodes of vomiting which is been clear or black. She states her last episode of vomiting was 5 days ago. She states her diarrhea has been watery to now loose and black, last episode today. She states her abdominal pain is diffuse, sharp and crampy. She called her PCP for the symptoms and was referred for outpatient labs which she obtained today. She states she was told to come to the emergency department for low potassium noted on labs today. She has taken Tylenol without relief. She denies any recent travel, fever, urinary symptoms, chest pain, shortness of breath, recent antibiotics. Related Data Home Medications Medication Instructions Recorded Confirmed atorvastatin 20 mg PO HS 01/16/19 12/23/19 bupropion HCl [Wellbutrin XL] 150 mg PO BID 01/16/19 12/23/19 cholecalciferol (vitamin D3) 2,000 unit PO DAILY 01/16/19 12/23/19 [Vitamin D3] loratadine [Claritin] 10 mg PO DAILY 01/16/19 12/23/19 lorazepam 1 mg PO BID 01/16/19 12/23/19 metoprolol succinate 25 mg PO AC 01/16/19 12/23/19 Aimovig Autoinjector mg SUBCUT 11/17/19 Trelegy Ellipta INHALATION 11/17/19 albuterol sulfate [ProAir HFA] INHALATION 11/17/19 cyclobenzaprine mg 11/17/19 escitalopram oxalate mg 11/17/19 loperamide 2 mg PO Q4H PRN 11/17/19 11/17/19 ondansetron 4 mg PO BID PRN 11/17/19 12/23/19 prednisone See Rx Instructions .ROUTE 11/17/19 .COMPLEX #12 tab acetaminophen [Tylenol 8 Hour] 650 mg PO BID 12/23/19 12/23/19 ascorbic acid (vitamin C) [Vitamin 500 mg PO DAILY 12/23/19 12/23/19 C] azithromycin [Zithromax] 250 mg PO DAILY 12/23/19 12/23/19 erenumab-aooe [Aimovig See Rx Instructions .ROUTE .COMPLEX 12/23/19 12/23/19 Autoinjector] escitalopram oxalate [Lexapro] 20 mg PO DAILY 12/23/19 12/23/19 esomeprazole magnesium [Nexium] 40 mg PO AC 12/23/19 12/23/19 loperamide 2 mg PO PRN PRN 12/23/19 12/23/19 magnesium See Rx Instructions .ROUTE .COMPLEX 12/23/19 12/23/19 Previous Rx's Medication Instructions Recorded prednisone See Rx Instructions .ROUTE 11/17/19 .COMPLEX #12 tab Allergies Allergy/AdvReac Type Severity Reaction Status Date / Time NSAIDS (Non-Steroidal Allergy Unverified 12/23/19 19:16 Anti-Inflamma Penicillins Allergy Unverified 12/23/19 19:16 aspirin AdvReac Unverified 12/23/19 19:16 General Stated Complaint: Abd Prob KIERA: 3 Review of Systems <Otilia Rojas DO - Last Filed: 12/23/19 20:14> All systems reviewed & are unremarkable except as noted in HPI and below Constitutional Constitutional: Reports as per HPI, Denies chills and Denies fever(s) Eyes Eyes: Denies blurry vision ENT Ears, Nose, Mouth, and Throat: Denies dizziness, Denies sore throat and Denies throat swelling Cardiovascular Cardiovascular: Denies chest pain and Denies dyspnea Respiratory Respiratory: Denies cough and Denies dyspnea Gastrointestinal Gastrointestinal: Reports abdominal pain, Reports diarrhea and Reports vomiting Genitourinary Genitourinary: Denies hematuria and Denies dysuria Musculoskeletal Musculoskeletal: Denies back pain and Denies numbness Integumentary/Breasts Skin/Breast: Denies lesions and Denies rash Neurologic Neurologic: Denies dizziness, Denies localized weakness and Denies numbness Allergic/Immunologic Allergic/Immunologic: Denies throat swelling PFSH <Otilia Rojas DO - Last Filed: 12/23/19 20:14> Social History Smoking/Tobacco Use Status: Current every day Tobacco Type: cigarettes Alcohol Intake: never Drug use: Never Substance use type: does not use Do you feel safe at home: Yes Do you feel safe in your relationship?: Yes Exam <Otilia Rojas DO - Last Filed: 12/23/19 20:14> Const General: cooperative, uncomfortable and no acute distress Orientation: alert, awake and oriented x3 HENMT Head: normal to inspection Face and sinus: normal facial exam Eyes General: appearance normal, both eyes and all related structures EOM: EOM intact bilaterally Neck Neck: normal visual inspection and No submandibular swelling Lymphatic: no lymphadenopathy noted Chest Chest: normal inspection of the chest and no tenderness Resp Effort & Inspection: normal respiratory effort and able to speak in complete sentences Auscultation: clear to auscultation bilaterally Cardio Rate: regular rate Rhythm: regular rhythm GI Inspection: normal to inspection Palpation: soft, not firm, not rigid and tender (Diffuse) Auscultation: normal bowel sounds Back/Spine/Pelvis Thoracic/Lumbar Spine: thoracic and lumbar spine normal to inspection and No lumbar spinal tenderness Pelvis: no buttock ecchymosis, no buttock tenderness and no buttock swelling Sacrum: no ecchymosis and no tenderness Coccyx: no swelling and no tenderness Skin General skin exam: no rashes or lesions noted Neuro General: patient alert, patient awake and patient oriented x3 Cognition: normal cognition Speech: speech normal Motor: muscle tone normal throughout Sensory Exam: no sensory deficits noted Extrem General: full ROM, capillary refill normal, no calf tenderness bilaterally and no edema Psych Appearance: grossly normal Mental Status: mental status grossly normal Speech and Movement: speech and movement normal Affect: normal affect Course <Otilia Rojas, DO - Last Filed: 12/23/19 20:14> Vital Signs Vital signs: Vital Signs Temperature 97.9 F 12/23/19 19:09 Pulse 96 H 12/23/19 19:09 Respiratory Rate 14 12/23/19 19:09 Blood Pressure 153/82 H 12/23/19 19:09 Pulse Oximetry 96 12/23/19 19:09 Temperature 97.9 F 12/23/19 19:09 Temperature Source Skin 12/23/19 19:09 Pulse 96 H 12/23/19 19:09 Respiratory Rate 14 12/23/19 19:09 Respiratory Effort Non-Labored 12/23/19 19:14 Blood Pressure 153/82 H 12/23/19 19:09 Blood Pressure Position Supine 12/23/19 19:09 Pulse Oximetry 96 12/23/19 19:09 Oxygen Delivery Method Room Air 12/23/19 19:09 Oxygen Flow Rate 0 12/23/19 19:09 Pain Level 10 12/23/19 19:09 Comment 12/23/19 19:09 Sign Out <Otilia Rojas DO - Last Filed: 12/23/19 20:14> Sign Out Data: Sign Out Comment: follow up on labs and imaging and response to pain medication. Attempt p.o. challenge. If work-up negative and patient able to tolerate p.o., okay to discharge home. Last updated by Otilia Rojas DO at 12/23/19 19:40
[2019-12-23 19:43] LABS: Lipase 256 U/L (73-393)
[2019-12-23] MEDS: Prochlorperazine 10 MG/2 ML VIAL IVP (19:44)
[2019-12-23] MEDS: Normal Saline Flush 10 ML SYR ×2 (19:44→20:16)
[2019-12-23] MEDS: Normal Saline 1,000 ML 1000 ML IV (19:45)
[2019-12-23] MEDS: Potassium Chloride 20 MEQ TABCR 40 MEQ PO (19:56)
[2019-12-23] MEDS: POTASSIUM CHLORIDE 20 MEQ/100 ML BAG 50 MEQ IVPB (19:58)
[2019-12-23] MEDS: Normal Saline - Diluent 50 ML VIAL IV (20:26)
[2019-12-23] MEDS: Omnipaque 350 MG/ML 100 ML BTL IJ (20:27)
[2019-12-23] MEDS: MAGNESIUM SULFATE 1 GM/100 ML BAG IVPB (20:36)
[2019-12-23 20:44] LABS: Troponin I < 0.05 ng/mL (<0.06)
--- NOTE | 2019-12-23 20:57 | DI.VRAD_ITS ---
PROCEDURE INFORMATION: Exam: CT Abdomen And Pelvis With Contrast Exam date and time: 12/23/2019 7:31 PM Age: 54 years old Clinical indication: Generalized; Patient HX: Diffuse abdominal pain, vomiting, diarrhea TECHNIQUE: Imaging protocol: Computed tomography of the abdomen and pelvis with intravenous contrast. Radiation optimization: All CT scans at this facility use at least one of these dose optimization techniques: automated exposure control; mA and/or kV adjustment per patient size (includes targeted exams where dose is matched to clinical indication); or iterative reconstruction. Contrast material: OMNIPAQUE 350; Contrast volume: 100 ml; Contrast route: IV; COMPARISON: CT CHEST PE ABD PELVIS W 11/17/2019 12:15 PM FINDINGS: Lungs: Subsegmental atelectasis and/or scarring in lingula and right middle lobe. Liver: Normal. No mass. Gallbladder and bile ducts: The patient is status post cholecystectomy. Minimal intra and extrahepatic biliary ductal dilatation. Pancreas: Pancreas appears normal. No ductal dilatation. Spleen: No splenomegaly. Adrenals: Normal adrenal glands. Kidneys and ureters: Irregularly-shaped, circumscribed area of diminished enhancement posterosuperiorly in upper pole of left kidney, measuring 2.7 cm. Too small to characterize subcentimeter hypoenhancing area or lesion in lower pole left kidney. No left hydronephrosis. Prominent extrarenal pelvis on the right. No obstructing right renal or ureteric calculi. No adenopathy. Stomach and bowel: The stomach is normal. No dilated loops of small bowel or colonic dilatation. No bowel wall thickening or mucosal abnormalities. Appendix: No evidence of appendicitis. Intraperitoneal space: Unremarkable. No free air. No significant fluid collection. Vasculature: No aortic aneurysm or dissection. Atherosclerosis. Lymph nodes: See Kidneys and ureters finding. Bladder: Unremarkable as visualized. Reproductive: Prior hysterectomy. Bones/joints: The spine demonstrates mild degenerative changes at multiple levels. No acute fracture. Soft tissues: Unremarkable. IMPRESSION: 1. Prominent right extrarenal pelvis could be as a result of recent obstructive uropathy with calculus since passed. 2. Area of diminished enhancement left kidney could represent a hypoenhancing mass, irregularly shaped cyst or subacute infarct. Correlate with renal ultrasound. 3. Intra-and extrahepatic biliary ductal dilatation, most likely due to prior cholecystectomy and/or instrumentation of the biliary tract. Other etiologies not excluded. Correlation with serum bilirubin warranted. Dictated and Authenticated by: Paxton Westbrook MD. Ordering:FELICIANO Bingham MD
[2019-12-23 21:45] LABS: Bilirubin Negative (Negative); Blood Trace-intact (Negative); Clarity Clear (Clear); Glucose Negative (Negative); Ketones Negative (Negative); Leukocyte Esterase Negative (Negative); Nitrite Negative (Negative); Specific Gravity <= 1.005 (1.005-1.025); Urobilinogen 0.2 EU/dL (Up TO 0.2)
[2019-12-23 21:48] LABS: Bacteria Rare HPF (Negative); C & S Indicated? No; Casts Negative LPF (Negative); Crystals Negative HPF (Negative); Epithelial Cells Rare HPF (Negative); Mucus Negative (Negative); WBC Negative HPF (0-5)
[2019-12-23 22:35] VITALS: BP 100/76; PULSE 87; RESP 14; TEMP 36.6; O2SAT 96
== END 2019-12-23 22:25 | disposition home or self-care (01) ==
PROVIDERS: Physician Assistant; Emergency Provider Student in an Organized Health Care Education/Training Program; PCP Registered Nurse
DX: E87.6 Hypokalemia (principal); R11.2 Nausea with vomiting, unspecified; R93.422 Abnormal radiologic findings on diagnostic imaging of left kidney; R19.7 Diarrhea, unspecified; R10.13 Epigastric pain; I10 Essential (primary) hypertension
CPT/HCPCS: 36415; 83690; 93005; 96361; 96365; 96366; 96368; 96375; 99285; 74177; 81003; 81015; 84484; 93010; J0780; J3475; J3480; J3490

== ENCOUNTER 2020-01-04 01:13 | Outpatient (CLI) | payer MEDICAID, SELFPAY ==
[2020-01-04 14:05] LABS: Bilirubin Negative (Negative); Blood Negative (Negative); Clarity Clear (Clear); Glucose Negative (Negative); Ketones Negative (Negative); Leukocyte Esterase Negative (Negative); Nitrite Negative (Negative); Specific Gravity 1.015 (1.005-1.025); Urobilinogen 0.2 EU/dL (Up TO 0.2)
[2020-01-04 14:57] LABS: ALT 19 U/L (14-59); AST 15 U/L (15-37); Albumin 3.1 g/dL (3.4-5.0); Alkaline Phosphatase 70 U/L (46-116); Anion Gap 10.8 mmol/L (3-11); BUN 5 mg/dL (7-18); Bilirubin, Total 0.5 mg/dL (0.2-1.0); CO2 26.2 mmol/L (21.0-32.0); CREATININE 0.83 mg/dL (0.55-1.02); Calcium 8.8 mg/dL (8.5-10.1); Chloride 105 mmol/L (98-107); Glucose 126 mg/dL (74-106); Potassium 3.7 mmol/L (3.5-5.1); Sodium 142 mmol/L (136-145); Total Protein 6.2 g/dL (6.4-8.2)
== END 2020-01-04 01:33 ==
PROVIDERS: PCP Registered Nurse; Visit Provider Registered Nurse
DX: R10.32 Left lower quadrant pain (principal); N28.9 Disorder of kidney and ureter, unspecified; R19.7 Diarrhea, unspecified; E87.6 Hypokalemia
CPT/HCPCS: 36415; 80053; 81003

== ENCOUNTER 2020-02-18 10:01 | Emergency (ER) | payer MEDICAID, SELFPAY ==
[2020-02-18] VITALS (18 sets, daily range): BP systolic 118–132; BP diastolic 73–87; PULSE 62–104; RESP 16–20; TEMP 36.2–36.5; O2SAT 94–97
--- NOTE | 2020-02-18 10:27 | DI.CT_ITS ---
EXAM: CT HEAD CERVICAL SPINE WO CLINICAL HISTORY: Fall, headache, nose injury TECHNIQUE: COMPARISON: No exams were available for comparison FINDINGS: CT examination cervical spine was performed utilizing multi slice acquisition multiplanar reconstruct ion. Images obtained through the lung apices are unremarkable. Visualized tracheolaryngeal structur es appear intact. There is an apparent mild broad-based central disc herniation at C3-4. This is of uncertain age. Th ere are prominent osteophytes C5 vertebral body and C4 and 5 endplates which protrude in the spinal c anal centrally and to the left of this level, chronic. There is no evidence of acute fracture or dislocation of the cervical spine. No cervical mass or adenopathy seen. Noncontrast cranial CT was performed. The ventricular system is normal in appearance. There is no e vidence of acute intracranial hemorrhage, mass effect, or midline shift. The orbital and temporal elaine ne structures appear intact. Some partial opacification of multiple ethmoid air cells is noted, pres umably chronic. No gross orbital or maxillary fracture. Mastoid air cells are clear as are the [place] of the paranasal sinuses. IMPRESSION: No evidence of acute cervical spine fracture. No evidence of acute intracranial injury.
--- NOTE | 2020-02-18 10:58 | ED.GENADUL_ITS ---
Discharge Plan Disposition Patient Disposition: HOME Condition: Stable Discharge Details Chief Complaint: Trauma Clinical Impression: Head injury, Laceration of nose, Shoulder pain, Leg abrasion Primary Care Provider: Eden Davila ED Provider: Rigoberto Barnes Raymond Meds and New Rx's Prescriptions: Continued lorazepam 1 mg Tablet 1 mg PO BID RF: 0 bupropion HCl [Wellbutrin XL] 150 mg Tablet Extended Release 24 Hr 150 mg PO BID RF: 0 cholecalciferol (vitamin D3) [Vitamin D3] 2,000 unit Capsule 2,000 unit PO DAILY RF: 0 metoprolol succinate 25 mg Tablet Extended Release 24 Hr 25 mg PO DAILY RF: 0 loratadine [Claritin] 10 mg Tablet 10 mg PO DAILY RF: 0 atorvastatin 20 mg Tablet 20 mg PO HS RF: 0 azithromycin [Zithromax] 250 mg Tablet 250 mg PO DAILY RF: 0 acetaminophen [Tylenol 8 Hour] 650 mg Tablet Extended Release 650 mg PO BID RF: 0 ascorbic acid (vitamin C) [Vitamin C] 500 mg Tablet 500 mg PO DAILY RF: 0 esomeprazole magnesium [Nexium] 40 mg Capsule,Delayed Release(Dr/Ec) 40 mg PO DAILY RF: 0 magnesium 200 mg Tablet See Rx Instructions .ROUTE .COMPLEX RF: 0 escitalopram oxalate [Lexapro] 20 mg Tablet 20 mg PO DAILY RF: 0 Aimovig Autoinjector 140 mg/mL Auto-Injector See Rx Instructions .ROUTE .COMPLEX RF: 0 ipratropium-albuterol 0.5 mg-3 mg(2.5 mg base)/3 mL solution for nebulization 3 ml INHALATION TID RF: 0 albuterol sulfate 2.5 mg /3 mL (0.083 %) solution for nebulization 2.5 mg inhalation TID RF: 0 loperamide 2 mg Tablet 2 mg PO Q4H PRNRF: 0 ondansetron 4 mg tablet,disintegrating 4 mg PO BID PRNRF: 0 albuterol sulfate [ProAir HFA] 90 mcg/actuation HFA aerosol inhaler INHALATION RF: 0 cyclobenzaprine 5 mg tablet 5 mg PO BID RF: 0 Trelegy Ellipta 100-62.5-25 mcg blister with device INHALATION RF: 0 Aimovig Autoinjector 140 mg/mL Auto-Injector SUBCUT RF: 0 Discharge Instructions Instructions: Head Injury (ED), Abrasion (ED), Shoulder Pain (ED), Facial Laceration (ED) Additional Instructions: CT imaging of your head, neck, x-ray of your left shoulder are all unremarkable. Dermabond will come off on its own in the next 5-7 days. Tish-puc-clirgzt medications as directed for symptomatic control. Wear sling as needed, advance activity as tolerated. Be sure to do passive range of motion at least 4 times daily to avoid a frozen shoulder. Rest, elevate, cool and/or warm compresses e very 2 hours for 20 minutes. Please watch for new or worsening symptoms and return to the ER for any concerns. I do recommend reaching out to your primary care provider for prompt outpatient reevaluation. If symptoms persist outpatient referral to orthopedics may be required for your left shoulder. Medical Decision Making 54-year-old female who was pulled off of her porch by her ill lab landing forward on her left shoulder and head. Reports that she saw black but no true LOC. She is awake, alert, able to answer my questions appropriately. Will obt ain CT imaging of her head and C-spine as well as x-ray of her left shoulder. Patient has a history of chronic pain syndrome and reports a history of taking narcotics but none currently. She would like to avoid that if at all possible. We will give IV Tylenol. After looking up her tetanus status, she will need it updated today. X-rayof left shoulder, CT of head and C-spine read by radiology as negative C-collar removed. Patient reports that pain has not really changed with Tylenol. Given 2 mg IV morphine. She received significant relief. Abrasions were cleaned and dressed. Laceration was thoroughly cleaned and irrigated. I was able to easily approximate the laceration to the bridge of her nose using Dermabond. Patient tolerated well. Left shoulder placed into a sling, she reports this positioning is much more comfortable. We discussed the importance of passive range of motion to avoid frozen shoulder and the importance of outpatient orthopedic follow-up symptoms persist. Patient is awake, alert, ambulates steadily and is neurologically intact. She was able to tolerate p.o. intake without difficulty. CT of head, C-spine and x- ray of left shoulder all unremarkable. Patient has no additional questions or concerns she is comfortable discharge at this time. Medical Records Medical records reviewed: Yes I reviewed the patient's medical records. HPI General Mode of arrival: EMS . Date/Time Provider Initiated Documentation: 02/18/20 10:11 . Limitations to Documentation: no limitations . Information obtained by: patient and EMS . HPI Narrative: This is a 54-year-old female who presents to the ER via EMS for evaluation after she fell striking her head. She was walking her dog, and pulled off of the porch because of the dog pulled hard. She fell forward striking her nose, head on the hard dirt. She reports everything went black but denies any prolonged LOC. She currently complains of a global headache moderate in nature, nose pain, left shoulder pain, right lower leg discomfort. She is unsure of her last tetanus shot. She has a past medical history of chronic pain syndrome, hypertension, hypercholesteremia, COPD. Related Data Home Medications Medication Instructions Recorded Confirmed atorvastatin 20 mg PO HS 01/16/19 02/18/20 bupropion HCl [Wellbutrin XL] 150 mg PO BID 01/16/19 02/18/20 cholecalciferol (vitamin D3) 2,000 unit PO DAILY 01/16/19 02/18/20 [Vitamin D3] loratadine [Claritin] 10 mg PO DAILY 01/16/19 02/18/20 lorazepam 1 mg PO BID 01/16/19 02/18/20 metoprolol succinate 25 mg PO DAILY 01/16/19 02/18/20 Aimovig Autoinjector mg SUBCUT 11/17/19 Trelegy Ellipta INHALATION 11/17/19 albuterol sulfate [ProAir HFA] INHALATION 11/17/19 cyclobenzaprine 5 mg PO BID 11/17/19 02/18/20 loperamide 2 mg PO Q4H PRN 11/17/19 02/18/20 ondansetron 4 mg PO BID PRN 11/17/19 02/18/20 Aimovig Autoinjector See Rx Instructions .ROUTE .COMPLEX 12/23/19 02/18/20 acetaminophen [Tylenol 8 Hour] 650 mg PO BID 12/23/19 02/18/20 ascorbic acid (vitamin C) [Vitamin 500 mg PO DAILY 12/23/19 02/18/20 C] azithromycin [Zithromax] 250 mg PO DAILY 12/23/19 02/18/20 escitalopram oxalate [Lexapro] 20 mg PO DAILY 12/23/19 02/18/20 esomeprazole magnesium [Nexium] 40 mg PO DAILY 12/23/19 02/18/20 magnesium See Rx Instructions .ROUTE .COMPLEX 12/23/19 02/18/20 albuterol sulfate 2.5 mg INHALATION TID 02/18/20 02/18/20 ipratropium-albuterol 3 ml INHALATION TID 02/18/20 02/18/20 Allergies Allergy/AdvReac Type Severity Reaction Status Date / Time NSAIDS (Non-Steroidal Allergy Unverified 02/18/20 10:09 Anti-Inflamma Penicillins Allergy Unverified 02/18/20 10:09 aspirin AdvReac Unverified 02/18/20 10:09 General Stated Complaint: Trauma KIERA: 3 Review of Systems Constitutional Constitutional: Denies fatigue, Reports headache(s) and Denies weakness Eyes Eyes: Denies change in vision ENT Ears, Nose, Mouth, and Throat: Reports headache(s) and Reports neck pain Cardiovascular Cardiovascular: Denies chest pain and Denies dyspnea Respiratory Respiratory: Denies cough and Denies dyspnea Gastrointestinal Gastrointestinal: Denies abdominal pain, Denies nausea and Denies vomiting Musculoskeletal Musculoskeletal: Denies back pain, Reports arthralgias (Left shoulder pain), Reports neck pain, Denies numbness and Denies tingling Integumentary/Breasts Skin/Breast: Denies rash Neurologic Neurologic: Reports headache(s), Denies numbness, Denies tingling and Denies weakness Endocrine Endocrine: Denies fatigue Hematologic/Lymphatic Hematologic/Lymphatic: Denies easy bleeding and Denies easy bruising [facility] Medical History Chronic pain syndrome (Chronic) Gastroparesis (Acute) History of IBS (Acute) HTN (hypertension) (Chronic) Peptic ulcer disease (Chronic) Surgical History H/O section (Chronic) H/O shoulder surgery (Chronic) History of appendectomy (Chronic) History of tonsillectomy and adenoidectomy (Acute) Social History Smoking/Tobacco Use Status: Current every day Tobacco Type: cigarettes and e- cigarettes Alcohol Intake: never Drug use: Never Substance use type: does not use Do you feel safe at home: Yes Do you feel safe in your relationship?: Yes Exam Const General: cooperative, healthy appearing, comfortable and no acute distress Orientation: alert, awake and oriented x3 [facility] Head: normal to inspection, no palpable skull fracture, normocephalic and atraumatic Ears: external ears normal and TM normal on the left Face images: 1. Abrasion. 1 cm well approximated irregular laceration. No active bleeding or obvious foreign body. No crepitus. Diffuse localized discomfort Mouth: moist mucous membranes Throat: posterior oropharynx normal Eyes General: appearance normal, both eyes and all related structures Alignment and Position: alignment normal Periorbital: periorbital findings normal Eyelids: eyelids normal Conjunctivae: conjunctivae normal Sclera: sclerae normal Cornea: corneas normal Pupils: PERRL EOM: EOM intact bilaterally Direct ophthalmoscopy: normal light reflex Neck Neck: normal visual inspection, trachea midline, supple and tender (Diffuse posterior, patient in a c-collar) Chest Chest: normal inspection of the chest and normal palpation of entire chest wall Resp Effort & Inspection: normal respiratory effort and able to speak in complete sentences Auscultation: clear to auscultation bilaterally Cardio Rate: regular rate Rhythm: regular rhythm GI Inspection: normal to inspection Palpation: soft and nontender Back/Spine/Pelvis Back: No back tenderness Skin General skin exam: no rashes or lesions noted Trauma: other (Scattered abrasion to right lower leg, from knee to superior ankle) Neuro General: patient alert, patient awake, patient oriented x3, moves all extremities and no focal motor deficits Cranial Nerves: CN's II-XI intact bilaterally Cognition: normal cognition Speech: speech normal Motor: muscle tone normal throughout and strength 5/5 throughout Sensory Exam: no sensory deficits noted Extrem General: full ROM and capillary refill normal Right upper extremity: normal to inspection, full ROM and normal capillary refill Left upper extremity: normal to inspection, full ROM, normal capillary refill and shoulder/upper arm Details: tenderness (Diffuse anterior and lateral) Right lower extremity: full ROM and normal capillary refill Left lower extremity: normal to inspection, full ROM and normal capillary refill Psych Appearance: grossly normal Mental Status: mental status grossly normal Course Vital Signs Vital signs: Vital Signs Temperature 36.2 C L 02/18/20 10:03 Pulse 104 H 02/18/20 10:03 Respiratory Rate 16 08/07/20 10:03 Blood Pressure 132/80 02/18/20 10:03 Pulse Oximetry 95 02/18/20 10:03 Temperature 36.2 C L 02/18/20 10:03 Temperature Source Skin 02/18/20 10:03 Pulse 104 H 02/18/20 10:03 Respiratory Rate 16 02/18/20 10:03 Respiratory Effort Non-Labored 02/18/20 10:23 Respiratory Depth Normal 02/18/20 10:23 Respiratory Pattern Normal 02/18/20 10:23 Blood Pressure 132/80 02/18/20 10:03 Blood Pressure Position Supine 02/18/20 10:03 Pulse Oximetry 95 02/18/20 10:03 Oxygen Delivery Method Room Air 02/18/20 10:03 Oxygen Flow Rate 0 02/18/20 10:03 Pain Level 10 02/18/20 10:23
--- NOTE | 2020-02-18 11:20 | DI.RAD_ITS ---
EXAM: XR SHOULDER LT COMPLETE 2+V CLINICAL HISTORY: Fall, pain, paresthesias TECHNIQUE: COMPARISON: No exams were available for comparison FINDINGS: Four views were obtained. There is mild hypertrophic degenerative change acromioclavicular and gleno humeral joints. There is no evidence of acute fracture or dislocation. There is an apparent prior b icipital tendon repair with a suture anchor in place adjacent to the proximal humeral diaphyseal meta physeal junction. IMPRESSION: No evidence of acute fracture.
[2020-02-18] MEDS: ACETAMINOPHEN 1,000 MG/100 ML BTL 400 MG IVPB (11:34)
[2020-02-18] MEDS: Lidocaine/Epinephri/Tetracaine Topical Gel 3 ML (12:49)
== END 2020-02-18 14:04 | disposition home or self-care (01) ==
PROVIDERS: Emergency Provider Physician Assistant; PCP Registered Nurse
DX: S01.21XA Laceration without foreign body of nose, initial encounter (principal); S80.811A Abrasion, right lower leg, initial encounter; M25.512 Pain in left shoulder; S09.90XA Unspecified injury of head, initial encounter; W17.89XA Other fall from one level to another, initial encounter; Y93.K1 Activity, walking an animal; J44.9 Chronic obstructive pulmonary disease, unspecified; F17.210 Nicotine dependence, cigarettes, uncomplicated; I10 Essential (primary) hypertension
CPT/HCPCS: 12011; 90471; 96365; 96375; 99285; 70450; 72125; 73030; 99284; J0131; L3650

== ENCOUNTER 2020-04-11 01:09 | Outpatient (CLI) | payer MEDICAID, SELFPAY ==
--- NOTE | 2020-04-11 | DI.US_ITS ---
EXAM: US RENAL CLINICAL HISTORY: F/U CT, ? RENAL LESION,N28.9,? CYST OR MASS. TECHNIQUE: Schroeder scale, color and spectral Doppler were used. COMPARISON: CT CT ABDOMEN PELVIS W from 12/23/2019 FINDINGS: Renal size in cm: Right: 10.4 left: 11.6 Echogenicity: Normal Hydronephrosis: No Cyst or mass: Previous CT showed a tiny cyst in the mid left kidney and there is an area of decreased perfusion near the upper pole. No abnormality is visible by ultrasound. Nephrolithiasis: No Other findings: None Bladder:Normal Prevoid vol:38 cc Postvoid vol: Not performed IMPRESSION: The kidneys appear normal in size and show normal parenchymal thickness. No abnormality is visible i n the upper pole of the left kidney by ultrasound. No mass is visible. DATA REPOSITORY:
== END 2020-04-11 01:29 ==
PROVIDERS: PCP Registered Nurse; Visit Provider Registered Nurse
DX: R93.422 Abnormal radiologic findings on diagnostic imaging of left kidney
CPT/HCPCS: 76770

== ENCOUNTER 2021-06-29 22:43 | Emergency (ER) | payer MEDICAID, SELFPAY ==
[2021-06-29 22:46] VITALS: PULSE 111; RESP 18; TEMP 36.1; O2SAT 94
--- OUTSIDE RECORDS SUMMARY | 2021-06-29 22:55 | XMS_ITS | Encounter Summary ---
:1965 Author Care Team Providers Name Role Phone Dr. Eden Davila Primary Care Provider [phone] Eden Davila [employer] ([employer]) Primary Care Provider [phone] Eden Davila Referring Provider [phone] Reason for Visit Colonoscopy and Beckford's Escophagus Con sult Assessment and Plan Assessment Note History of Beckford's esophagus and history of tubular adenoma due for an upper endoscopy and colonoscopy which we will schedule for her She is not in any anticoagulants however she does appear to have some mild regurgitation of her tricuspid mitral and aortic valves so 1 would want a monitor except dreamlike carefully during and after the procedure Discussion Note: None recorded.Patient educational handouts: No information available. Plan of Care Reminders Provider Appointments None ? ? recorded. Lab None ? ? recorded. Referral None ? ? recorded. Procedures None ? ? recorded. Surgeries None ? ? recorded. Imaging None ? ? recorded. Medications Name Start Date ? ? Aimovig Autoinjector 140 mg/mL subcutaneous auto-injec tor ? Inject 140 mg every month by subcutaneous route. albuterol sulfate 2.5 mg/3 mL (0.083 %) solution for n ebulization ? Inhale 3 mL 3 times a day by nebulization route as ne eded. atorvastatin 40 mg tablet ? Take 1 tablet every day by oral route. azithromycin 250 mg tablet ? TAKE DIRECTED diclofenac 1 % topical gel ? APPLY 2 GRAMS TO THE AFFECTED AREA(S) BY TOPICAL ROUT E 4 TIMES PER DAY EpiPen 2-Hussein 0.3 mg/0.3 mL injection, auto-injector ? USE DIRECTED Flonase Allergy Relief 50 mcg/actuation nasal spray,meyers spension ? Oblong 1 spray every day by intranasal route. ipratropium 0.5 mg-albuterol 2.5 mg/2.5 mL solution fo r nebulization ? Inhale 3 mL every 6 hours by inhalation route as need ed. Lexapro 20 mg tablet ? Take 1 tablet every day by oral route. loratadine 10 mg tablet ? Take 1 tablet every day by oral route. lorazepam 1 mg tablet ? Take 1 tablet twice a day by oral route. magnesium oxide 400 mg (241.3 mg magnesium) tablet ? Take 1 tablet twice a day by oral route. nebulizer accessories kit ? ondansetron 4 mg disintegrating tablet ? TAKE 1 TABLETS (4 MG) AND PLACE ON TOP OF THE TONGUE WHERE THEY WILL DISSOLVE, THEN SWALLOW BY ORAL ROUTE EVERY 12 HOURS ProAir HFA 90 mcg/actuation aerosol inhaler ? Inhale 2 puffs every 4-6 hours by inhalation route as needed. ropinirole 1 mg tablet ? Take 1 tablet every day by oral route. Toprol XL 25 mg tablet,extended release ? Take 1 tablet every day by oral route. Trelegy Ellipta 100 mcg-62.5 mcg-25 mcg powder for inh alation ? Inhale 1 puff every day by inhalation route. Tylenol 8 Hour 650 mg tablet,extended release ? Take 2 tablets twice a day by oral route. Vitamin D3 50 mcg (2,000 unit) capsule ? Take 1 capsule every day by oral route. Wellbutrin SR 150 mg tablet, 12 hr sustained-release ? Take 1 tablet twice a day by oral route. Medications Administered None recorded. Vitals Height Weight BMI Blood Pressure 5 ft 4 in 194 lbs 33.3 kg/m2 118/64 mm[Hg] Results Lab Results None recorded. Allergies Code Code System Name Reaction Severity Onset 897518 RxNorm Advil ? ? ? 368452 RxNorm Aleve ? ? ? Antihistamines - ? ? ? Alkylamine Bee Venom Protein ? ? ? (Honey Bee) 760458 RxNorm Egg Yolk Diarrhea ? ? 5640 RxNorm Ibuprofen ? ? ? Nut - Unspecified Other ? ? Penicillins ? ? ? Spider Venom ? ? ? 623281 RxNorm Zocor ? ? ? Notes: oat nut bread Problems Name Status Onset Date Source ? Hyperlipidemia Active 06/11/2017 ? Smokes Tobacco Daily Active 06/11/2017 ? Posttraumatic Stress Disorder Active 06/11/2017 ? Chronic Pain Syndrome Active 06/11/2017 ? Migraine Active 06/11/2017 ? Carpal Tunnel Syndrome Active 06/11/2017 ? Chronic Obstructive Lung Disease Active 06/11/2017 ? Gastritis Active 06/11/2017 ? Gastroparesis Syndrome Active 06/11/2017 ? Irritable Bowel Syndrome Active 06/11/2017 ? Prediabetes Active 06/11/2017 ? Panic Disorder Active 06/11/2017 ? Complication of Anesthesia Active 03/12/2018 ? Hypokalemia Active 08/27/2018 ? Gastroesophageal Reflux Disease Active 08/27/2018 ? Acid Reflux Active 08/27/2018 ? Beckford's Esophagus Active 08/27/2018 ? Nondiabetic Gastroparesis Active 08/27/2018 ? Osteoarthritis Active 08/27/2018 ? Shoulder Pain Active 08/27/2018 ? Nausea Active 08/27/2018 ? Abdominal Pain Active 08/27/2018 ? Vitamin D Deficiency Active 04/10/2021 ? Insomnia Active 04/10/2021 ? Sleep Related Hypoxemia Active 04/10/2021 ? Low Back Pain Active 04/10/2021 ? Peripheral Neuropathic Pain Active 04/10/2021 ? Housing Problem Active 04/10/2021 ? Pain in Right Hip Joint Active 04/10/2021 ? Pain in Right Thumb Active 04/10/2021 ? Procedures Date Name Performed by ? 03/14/2018 Egd Information not avai lable Notes: BARRETTS 03/14/2018 Colonoscopy Information not avai lable Notes: POLYP REPEAT 3 YEARS 05/14/2014 Egd Information not avai lable Notes: DOUDENAL DIVERTICULA ? Colonoscopy Information not avai lable Notes: 2012-Polyps REPEAT 5 YEARS ? Appendectomy Information not avai lable Notes: age 13 ? Tonsilectomy/adenoids Information not av ailable Notes: age 13 ? Delivery Information not avai lable Notes: x2 ? Total Hysterectomy Information not avai lable Notes: 1993 ? Removal of Gallbladder Information not a vailable Notes: 09/2010 ? Shoulder Joint Surgery Information not a vailable Notes: rotator cuff 2012 right Notes: breast lump excision 08/15 014 Vaccine List Vaccine Type influenza, unspecified formulation 04/26/2020 pneumococcal polysaccharide PPV23 12/02/2012 Tdap 12/02/2012 Social History Tobacco Smoking Status Current Every Day Smoker Notes: 03/18/19--reports has smoked off an on sin ce age fewcigarettes a day Has tobacco cessation N counseling been provided? Are you able to care for Y yourself? Are you currently waiting on N results of a COVID-19 test? What is your code status? 0 Are you isolating or N quarantining because you may have been exposed to a person with COVID-19 or are worried that you may be sick with COVID-19? What was the date of your 06/25/2021 most recent tobacco screening? Do you have an advanced Y directive? Do you use any illicit or N recreational drugs? What is your level of alcohol None consumption? Have you travelled outside of [facility] in the past 14 days? Have you experienced any of N the following symptoms in the past 48 hours? Fever/Chills, Cough, Shortness of breath or difficulty breathing, fatigue, muscle or body aches, headache, new loss of taste or smell, sore throat, congestion or runny nose, nausea or vomiting and/or diarrhea Have you had any vaccines in the last month or do you have any vaccines scheduled? Which illicit or recreational none drugs have you used? Within the past 14 days, have N you been in close physical contact (6 feet or closer for a cumulative total of 15 minutes) with anyone that is known to have laboratory-confirmed COVID-19? OR Anyone who has any symptoms consistent with COVID-19? Are you passively exposed to N smoke? Do you or have you ever used N any other forms of tobacco or nicotine? Alcohol - Daily intake: None Family History Relation Problem Onset Age of Age Notes Mother Cerebrovascular accident (No N/A (No Notes) Information) Mother Heart disease (No N/A (No Notes) Information) Mother Anxiety (No N/A (No Notes) Information) Mother Depressive disorder (No N/A (No Note s) Information) Mother Hypertensive disorder (No N/A (No No efren) Information) Functional Status Unknown. Past Encounters 06/25/2021 Margie Reyes MD: [address] [place] [phone], Ph. History of Present Illness Note: <div>The patient is a 55-year-old female patient who is referred she says for an upper endoscopy and a colonoscopy both of which she says she has every 3 years because of abnormalities in the past. I do not have any specific information on this particular issue however in the referral form it says that she has had Beckford's esophagus in the past and a tubular adenoma in the past. It says that she last had upper endoscopy and colonoscopy in 2018. The notes that I have received fromher PCP show that she is has some difficulty sleeping lately with COPD and hypoxia at night also appears that she has had a cardiac work-up that shows tricuspid regurg mitral regurg and aortic regurg all to a mild extent. She denies chest pain. She does take Nexium but it does not appear that she is on any anticoagulants.</div>Review of Systems: ROS as noted in the HPI Review of Systems None recorded. Physical Exam ? Notes: <div>Lungs a few wheezes and expiratory bilaterally
Cardiac regular rate and rhythm with a grade 1 sy stolic murmur
Abdomen obese but soft and nontender, bowel sounds are present and normally active
The patient is alert and appears comfortabl e in no acute distress
</div>
--- OUTSIDE RECORDS SUMMARY | 2021-06-29 22:55 | XMS_ITS ---
:1965 Author Care Team Providers Name Role Phone DR. BERKLEY RAY Primary Care Provider [phone] DR. BERKLEY RAY Referring Provider [phone] BERKLEY RAY [employer]RAFT [employer] (DIRECT) Primary Care Provider [phone] Allergies Code Code System Name Reaction Severity Status Onset 261405 RxNorm Advil ? ? Active ? 316226 RxNorm Aleve ? ? Active ? Antihistamines - ? ? Active ? Alkylamine Bee Venom Protein ? ? Active ? (Honey Bee) 020247 RxNorm Egg Yolk Diarrhea ? Active ? 5640 RxNorm Ibuprofen ? ? Active ? Nut - Unspecified Other ? Active ? Penicillins ? ? Active ? Spider Venom ? ? Active ? 762479 RxNorm Zocor ? ? Active ? Notes: oat nut bread Medications Name Status Start Date Stop Date ? ? acetaminophen 325 mg tablet Completed ? 03/15 Take 1 tablet 4 times a day by oral route. Aimovig Autoinjector 140 mg/mL subcutaneous auto-injector Active ? Not available Inject 140 mg every month by subcutaneous route. albuterol sulfate 2.5 mg/3 mL (0.083 %) solution for nebulizatio n Active ? Not available Inhale 3 mL 3 times a day by nebulization route as needed. Ambien CR 6.25 mg tablet,extended release Completed ? 04/10/2021 Take 1 tablet every day by oral route. atorvastatin 10 mg tablet Completed ? 2020 Take 1 tablet every day by oral route. atorvastatin 40 mg tablet Active ? Not av ailable Take 1 tablet every day by oral route. azithromycin 250 mg tablet Active ? Not a vailable TAKE DIRECTED Bentyl 20 mg tablet Completed ? 04/10/2021 Take 1 tablet 4 times a day by oral route. benzonatate 100 mg capsule Completed ? 03/18 Take 1 capsule every 8 hours by oral route. diazepam 5 mg tablet Completed ? 03/05/2018 Take 1 tablet twice a day by oral route. diclofenac 1 % topical gel Active ? Not a vailable APPLY 2 GRAMS TO THE AFFECTED AREA(S) BY TOPICAL ROUTE 4 TIMES PER DAY EpiPen 2-Hussein Completed ? 04/10/2021 EpiPen 2-Hussein 0.3 mg/0.3 mL injection, auto-injector Active ? Not available USE DIRECTED Flonase Allergy Relief 50 mcg/actuation nasal spray,suspension A ctive ? Not available Valley 1 spray every day by intranasal route. Flovent HFA 110 mcg/actuation aerosol inhaler Completed ? 03/18/2019 Inhale 1 puff twice a day by inhalation route. Imodium A-D 2 mg tablet Completed ? 06/25/20 21 Take 1 tablet every day by oral route in the morning. ipratropium 0.5 mg-albuterol 2.5 mg/2.5 mL solution for nebuliza tion Active ? Not available Inhale 3 mL every 6 hours by inhalation route as needed. Lexapro 20 mg tablet Active ? Not availab le Take 1 tablet every day by oral route. loratadine 10 mg tablet Active ? Not avai lable Take 1 tablet every day by oral route. lorazepam 1 mg tablet Active ? Not availa ble Take 1 tablet twice a day by oral route. magnesium oxide 400 mg (241.3 mg magnesium) tablet Active ? Not available Take 1 tablet twice a day by oral route. Nasonex 50 mcg/actuation Valley Completed ? 1 08/26/2020 Valley 2 sprays as needed by intranasal route. nebulizer accessories kit Active ? Not av ailable Nexium 40 mg capsule,delayed release Completed ? 06/25/2021 Take 1 capsule every day by oral route. nystatin 100,000 unit/gram topical ointment Completed ? 09/03/2018 APPLY TO THE AFFECTED AREA(S) BY TOPICAL ROUTE 2 TIMES PER DAY ondansetron 4 mg disintegrating tablet Active ? Not available TAKE 1 TABLETS (4 MG) AND PLACE ON TOP OF THE TONGUE WHERE THEY WILL DISSOLVE, THEN SWALLOW BY ORAL ROUTE EVERY 12 HOURS ProAir HFA 90 mcg/actuation aerosol inhaler Active ? Not available Inhale 2 puffs every 4-6 hours by inhalation route as needed. ropinirole 1 mg tablet Active ? Not avail able Take 1 tablet every day by oral route. Singulair 10 mg tablet Completed ? 9 Take 1 tablet every day by oral route. Toprol XL 25 mg tablet,extended release Active ? Not available Take 1 tablet every day by oral route. trazodone 300 mg tablet Completed ? 09/03/19 19 Take 1 tablet every day by oral route at bedtime. Trelegy Ellipta 100 mcg-62.5 mcg-25 mcg powder for inhalation Ac tive ? Not available Inhale 1 puff every day by inhalation route. Tylenol 8 Hour 650 mg tablet,extended release Active ? Not available Take 2 tablets twice a day by oral route. Vitamin D3 25 mcg (1,000 unit) tablet Completed ? 03/18/2019 Take 1 tablet every day by oral route. Vitamin D3 50 mcg (2,000 unit) capsule Active ? Not available Take 1 capsule every day by oral route. Wellbutrin SR 150 mg tablet, 12 hr sustained-release Active ? Not available Take 1 tablet twice a day by oral route. Problems Name Status Onset Date Source ? Vitamin Deficiency Unknown 06/11/2017 ? Hyperlipidemia Active 06/11/2017 ? Smokes Tobacco [...] Total Hysterectomy Information not avai lable Notes: 1992 ? Removal of Gallbladder Information not a vailable Notes: 09/2010 ? Shoulder Joint Surgery Information not a vailable Notes: rotator cuff 2011 right Notes: breast lump excision 08/15 014 Results Lab Results Date Name Specimen Result Interpretation Description Value Range Status Address ? 09/12/2020 HbA1C WB High A1C 5.7 % <5.7 % Final [facility] e (Hemoglobin Hospi erick a1C), Blood Labor atory & Pathology: [address] [place] [address] ? ? WB Normal Estavegluc 117 calc <140 calc Final [facility] Laboratory & Pathology: [address] [place] [address] 09/12/2020 CBC W/ Auto WB Normal Wbc 6.8 4.8-10.8 Final [facility] Diff 10^3/mm^3 10^3/mm^3 Hosp ital Laboratory & Pathology: [address] [place] [address] ? ? WB Normal Rbc 4.22 3.90-5.03 Final [facility] 10^6/mm^3 10^6/mm^3 Hosp ital Laboratory & Pathology: [address] [place] [address] ? ? WB Normal Hgb 13.2 g/dL 12.0-15.5 Final [facility] age g/dL Hospital Laboratory & Pathology: [address] [place] [address] ? ? WB Normal Hct 41 % 36-46 % Final [facility] Laboratory & Pathology: [address] [place] [address] ? ? WB Normal Mcv 96.2 fL 81.0-99.0 Final [facility] Laboratory & Pathology: [address] [place] [address] ? ? WB Normal Mch 31.3 pg 27.1-32.0 Final [facility] Laboratory & Pathology: [address] [place] [address] ? ? WB Normal Mchc 33 g/dL 33-36 Final [place] g/dL Hospital Laboratory & Pathology: [address] [place] [address] ? ? WB Normal Rdw 13.0 % 11.6-14.8 Final [facility] % [facility] Laboratory & Pathology: [address] [place] [address] ? ? WB Normal Platelets 251 150-400 Final [place] [facility] 10^3/mm^3 10^3/mm^3 Hosp ital Laboratory & Pathology: [address] [place] [address] ? ? WB Normal Ne# 3.36 1.20-6.70 Final [facility] 10^3/mm^3 10^3/mm^3 Hosp ital Laboratory & Pathology: [address] [place] [address] ? ? WB Normal Ly# 2.67 1.20-3.40 Final [facility] 10^3/mm^3 10^3/mm^3 Hosp ital Laboratory & Pathology: [address] [place] [address] ? ? WB Normal Mo# 0.48 0.11-0.70 Final [facility] 10^3/mm^3 10^3/mm^3 Hosp ital Laboratory & Pathology: [address] [place] [address] ? ? WB Normal Eo# 0.17 0.00-0.70 Final [facility] 10^3/mm^3 10^3/mm^3 Hosp ital Laboratory & Pathology: [address] [place] [address] ? ? WB Normal Ba# 0.07 0.00-0.20 Final [facility] 10^3/mm^3 10^3/mm^3 Hosp ital Laboratory & Pathology: [address] [place] [address] ? ? WB Normal Neut% 50 % per 100 40-74 % Final [place] [facility] WBC per 100 Hospital WBC Laboratory & Pathology: [address] [place] [address] ? ? WB Normal Ly% 40 % per 100 19-48 % Final [place] [facility] WBC per 100 Hospital WBC Laboratory & Pathology: [address] [place] [address] ? ? WB Normal Mo% 7.1 % per 3.0-10.0 Final [facility] 100 WBC % per 100 Hospit al WBC Laboratory & Pathology: [address] [place] [address] ? ? WB Normal Eo% 2.5 % per 1.0-7.0 % Final [facility] 100 WBC per 100 Hospital WBC Laboratory & Pathology: [address] [place] [address] ? ? WB Normal Ba% 1.0 % per 0.0-2.0 % Final [facility] 100 WBC per 100 Hospital WBC Laboratory & Pathology: [address] [place] [address] 09/12/2020 Lipid Panel, P High Chol 210 mg/dL <200 [facility] Blood mg/dL [facility] Laboratory & Pathology: [address] [place] [address] ? ? P Normal Hdl 52 mg/dL 40-60 Final [facility] mg/dL Hospital Laboratory & Pathology: [address] [place] [address] ? ? P High Trig 157 mg/dL 30-150 Final [facility] mg/dL [facility] Laboratory & Pathology: [address] [place] [address] ? ? P High LDL(C) 127 calc <[address] [facility] Laboratory & Pathology: [address] [place] [address] ? ? P ? Risk 4.0 calc ? [facility] Laboratory & Pathology: [address] [place] [address] 09/12/2020 Vitamin D2, P Normal Vitd 36.80 NG/mL >30.00 Fin al [facility] 25-Hydroxy, NG/mL Hospi erick Serum Laboratory & Pathology: [address] [place] [address] 09/12/2020 Folate, P Normal Fol 14.6 NG/mL 8.6-58.9 Final [facility] Serum NG/mL [facility] Laboratory & Pathology: [address] [place] [address] 09/12/2020 Vitamin B12, P Normal B12 639.00 pg/mL 193.00-9 8 Final [facility] Serum 6.00 Hospital pg/mL Laboratory & Pathology: [address] [place] [address] 09/12/2020 TSH + Free P Normal Tsh 2.123 mIU/mL 0.360-3.7 Final [facility] T4, Serum 40 mIU/mL Hosp ital Laboratory & Pathology: [address] [place] [address] 09/12/2020 CMP, Serum P Normal Na 139 mEq/L 136-145 Final [facility] or Plasma mEq/L Hospita l Laboratory & Pathology: [address] [place] [address] ? ? P Normal K 4.6 mEq/L 3.5-5.1 Final [facility] e mEq/L Hospital Laboratory & Pathology: [address] [place] [address] ? ? P Normal Cl 103 mEq/L 98-107 Final [facility] mEq/L [facility] Laboratory & Pathology: [address] [place] [address] ? ? P Normal Co2 29 mEq/L 21-31 Final [facility] mEq/L [facility] Laboratory & Pathology: [address] [place] [address] ? ? P ? Agap 12.1 ? Final [facility] calculation Hospi erick Laboratory & Pathology: [address] [place] [address] ? ? P High Glu 108 mg/dL 70-100 Final [facility] mg/dL [facility] Laboratory & Pathology: [address] [place] [address] ? ? P Normal Bun 10 mg/dL 7-18 Final [facility] mg/dL [facility] Laboratory & Pathology: [address] [place] [address] ? ? P Normal Creat 0.87 mg/dL 0.55-1.02 Final [facility] mg/dL [facility] Laboratory & Pathology: [address] [place] [address] ? ? P ? Bn/cr 11.0 ratio ? Final [facility] e [facility] Laboratory & Pathology: [address] [place] [address] ? ? P Normal Ca 9.0 mg/dL 8.5-10.1 [facility] Laboratory & Pathology: [address] [place] [address] ? ? P Normal Alkp 65 U/L 46-118 Final [facility] U/L [facility] Laboratory & Pathology: [address] [place] [address] ? ? P Normal Alt 27 U/L 14-59 U/L [facility] Laboratory & Pathology: [address] [place] [address] ? ? P Normal Ast 20 U/L 15-37 U/L Final [facility] Laboratory & Pathology: [address] [place] [address] ? ? P Normal Tbil 0.4 mg/dL <=1.2 Final [facility] mg/dL [facility] Laboratory & Pathology: [address] [place] [address] ? ? P Normal Tp 6.9 g/dL 6.4-8.2 Final [facility] g/dL [facility] Laboratory & Pathology: [address] [place] [address] ? ? P Normal Alb 4.0 g/dL 3.4-5.0 Final [facility] g/dL [facility] Laboratory & Pathology: [address] [place] [address] ? ? P ? Glob 2.89 mg/dL ? Final [facility] Laboratory & Pathology: [address] [place] [address] ? ? P ? A/g 1.4 calc ? Final [facility] Laboratory & Pathology: [address] [place] [address] ? ? P ? Egfraa 81.34 ? Final [facility] Laboratory & Pathology: [address] [place] [address] ? ? P ? Egfrnaa 67.11 ? Final [facility] Laboratory & Pathology: [address] [place] [address] 09/12/2020 Iron + Total S Normal Fe 83 ug/dL 50-170 Final [facility] Iron-binding ug/dL Hosp ital Capacity Laborato ry (TIBC), & Serum Pathology: [address] [place] [address] ? ? S Normal Tibc 336 ug/dL 250-450 Final [facility] ug/dL [facility] Laboratory & Pathology: [address] [place] [address] ? ? S ? Sat 24.8 % ? Final [facility] Laboratory & Pathology: [address] [place] [address] 04/26/2020 Urinalysis, U ? Urine random ? Final [facility] Dipstick, Collection Hos pital Reflex Micro Method Labo ratory & Pathology: [address] [place] [address] ? ? U Normal Color yellow yellow Final [facility] Laboratory & Pathology: [address] [place] [address] ? ? U Normal Raffy clear clear Final [facility] Laboratory & Pathology: [address] [place] [address] ? ? U Normal Spgr 1.015 1.015-1.[address] Laboratory & Pathology: [address] [place] [address] ? ? U ? Ph 5.5 ? Final [facility] Laboratory & Pathology: [address] [place] [address] ? ? U Normal Gluc negative negative Final [facility] Laboratory & Pathology: [address] [place] [address] ? ? U Normal Bilb negative negative Final [facility] Laboratory & Pathology: [address] [place] [address] ? ? U Normal Ket negative negative Final [facility] Laboratory & Pathology: [address] [place] [address] ? ? U Normal Bld negative negative Final [facility] Laboratory & Pathology: [address] [place] [address] ? ? U Normal Prot negative negative Final [facility] Laboratory & Pathology: [address] [place] [address] ? ? U Normal Uro 0.2 E.U./dL 0.2 Final [facility] ge E.U./dL Hospital Laboratory & Pathology: [address] [place] [address] ? ? U Normal Nit negative negative Final [facility] Laboratory & Pathology: [address] [place] [address] ? ? U Normal Leuko negative negative Final [facility] Laboratory & Pathology: [address] [place] [address] 12/24/2018 HbA1C WB Normal A1C 5.9 % 4.5-6.2 % Final [facility] (Hemoglobin Hospi erick a1C), Blood Labor atory & Pathology: [address] [place] [address] ? ? WB ? Eag 123 calc ? Final [facility] Laboratory & Pathology: [address] [place] [address] 12/24/2018 Lipid Panel P High Chol 244 mg/dL <200 Final [facility] W/ Direct mg/dL Hospita l LDL, Serum Labora tory & Pathology: [address] [place] [address] ? ? P Normal Hdl 48 mg/dL 40-60 Final [facility] mg/dL [facility] Laboratory & Pathology: [address] [place] [address] ? ? P Normal Trig 147 mg/dL 30-150 Final [facility] mg/dL [facility] Laboratory & Pathology: [address] [place] [address] ? ? P High LDL(C) 166 calc <[address] [facility] Laboratory & Pathology: [address] [place] [address] ? ? P ? Risk 5.1 calc ? Final [facility] Laboratory & Pathology: [address] [place] [address] 12/24/2018 BMP, Serum P High Glu 103.0 mg/dL 70.0-100. F inal [facility] or Plasma 0 mg/dL Hospit al Laboratory & Pathology: [address] [place] [address] ? ? P Normal Bun 11 mg/dL 7-18 Final [facility] mg/dL [facility] Laboratory & Pathology: [address] [place] [address] ? ? P Normal Creat 0.75 mg/dL 0.55-1.02 Final [facility] mg/dL [facility] Laboratory & Pathology: [address] [place] [address] ? ? P Normal Na 139 mEq/L 136-145 Final [facility] mEq/L [facility] Laboratory & Pathology: [address] [place] [address] ? ? P Normal K 4.4 mEq/L 3.5-5.1 Final [facility] e mEq/L [facility] Laboratory & Pathology: [address] [place] [address] ? ? P Normal Cl 102 mEq/L 98-107 Final [facility] mEq/L [facility] Laboratory & Pathology: [address] [place] [address] ? ? P Normal Co2 27 mEq/L 21-32 Final [facility] mEq/L [facility] Laboratory & Pathology: [address] [place] [address] ? ? P Normal Ca 9.3 mg/dL 8.5-10.1 Final [facility] Laboratory & Pathology: [address] [place] [address] ? ? P ? Agap 18.4 ratio ? Final [facility] Laboratory & Pathology: [address] [place] [address] ? ? P ? Bn/cr 15.2 calc ? Final [facility] Laboratory & Pathology: [address] [place] [address] ? ? P ? Egfraa 97.24 ? Final [facility] Laboratory & Pathology: [address] [place] [address] ? ? P ? Egfrnaa 80.23 ? Final [facility] Laboratory & Pathology: [address] [place] [address] 08/06/2018 Vitamin D2, ? Vitamin D, 34.0 NG/mL >=30.0 Final [facility] 25-Hydroxy, 25-Oh NG/mL Hospi [facility] Serum Laboratory & Pathology: [address] [place] [address] 08/06/2018 HbA1C ? Hba1C 5.8 % 4.5-6.2 % Final [facility] (Hemoglobin Hospi [facility] a1C), Blood Labor atory & Pathology: [address] [place] [address] ? ? High Mean Glucose 120 mg/dL 54-115 Final [facility] mg/dL [facility] Laboratory & Pathology: [address] [place] [address] 08/06/2018 CBC W/ Auto ? Wbc 8.1 x10^3/uL 4.8-10.8 Final [facility] Diff x10^3/uL Hospital Laboratory & Pathology: [address] [place] [address] ? ? ? Rbc 4.49 3.90-5.03 Final [facility] x10^6/uL x10^6/uL Hospit al Laboratory & Pathology: [address] [place] [address] ? ? ? Hgb 13.8 g/dL 12.0-15.5 Final [facility] age g/dL Hospital Laboratory & Pathology: [address] [place] [address] ? ? ? Hct 42.4 % 36.0-46.0 Final [facility] Laboratory & Pathology: [address] [place] [address] ? ? ? Mcv 94.4 fL 81.0-99.0 Final [facility] fL Hospital Laboratory & Pathology: [address] [place] [address] ? ? Low Mch 30.7 pg 33.0-36.0 Final [facility] pg Hospital Laboratory & Pathology: [address] [place] [address] ? ? Low Mchc 32.5 g/dL 33.0-36.0 Final [facility] g/dL Hospital Laboratory & Pathology: [address] [place] [address] ? ? ? RDW-CV 13.3 % 11.6-14.8 Final [facility] % Hospital Laboratory & Pathology: [address] [place] [address] ? ? ? Plt 219 x10^3/uL 150-400 Final [facility] x10^3/uL Hospital Laboratory & Pathology: [address] [place] [address] ? ? ? Neut % 58.0 % 40.0-74.0 Final [facility] % Hospital Laboratory & Pathology: [address] [place] [address] ? ? ? Lymph % 31.3 % 19.0-48.0 Final [facility] Laboratory & Pathology: [address] [place] [address] ? ? ? Moca% 8 % 3-10 % Final [facility] Laboratory & Pathology: [address] [place] [address] ? ? ? Eos% 2 % 1-7 % Final [facility] Laboratory & Pathology: [address] [place] [address] ? ? ? Baso% 1 % 0-2 % Final [facility] Laboratory & Pathology: [address] [place] [address] ? ? ? Neut # 4.70 1.00-7.00 Final [facility] x10^3/uL x10^3/uL Hospit al Laboratory & Pathology: [address] [place] [address] ? ? ? Lymph# 2.53 1.20-3.40 Final [facility] [facility] x10^3/uL x10^3/uL Hospit al Laboratory & Pathology: [address] [place] [address] ? ? ? Moca# 0.66 0.10-0.70 Final [facility] x10^3/uL x10^3/uL Hospit al Laboratory & Pathology: [address] [place] [address] ? ? ? Eos # 0.16 0.00-0.70 Final [facility] x10^3/uL x10^3/uL Hospit al Laboratory & Pathology: [address] [place] [address] ? ? ? Baso # 0.0 x10^3/uL 0.0-0.2 Final [facility] x10^3/uL Hospital Laboratory & Pathology: [address] [place] [address] 08/06/2018 Lipid Panel High Cholesterol 235 mg/dL <=200 Final [place] W/ Direct mg/dL Hospita l LDL, Serum Labora tory & Pathology: [address] [place] [address] ? ? ? HDL 58 mg/dL 40-60 Final [facility] Cholesterol mg/dL Hospi erick Laboratory & Pathology: [address] [place] [address] ? ? ? Triglyceride 112 mg/dL 30-150 [facility] Laboratory [facility] Pathology: [address] [place] [address] ? ? ? HDL Risk 4.1 calc ? Final [facility] Laboratory [facility] Pathology: [address] [place] [address] ? ? High LDL 155 calc <=100 Final [facility] (Calculated) calc Hosp ital Laboratory & Pathology: [address] [place] [address] 08/06/2018 CMP, Serum ? Sodium 140 mEq/L 136-145 [facility] or Plasma mEq/L Hospita l Laboratory & Pathology: [address] [place] [address] ? ? ? Potassium 3.9 mEq/L 3.5-5.1 Final [facility] mEq/L Hospital Laboratory & Pathology: [address] [place] [address] ? ? ? Chloride 102 mEq/L 98-107 Final [facility] mEq/L Hospital Laboratory & Pathology: [address] [place] [address] ? ? ? Carbon 27 mEq/L 21-32 Final [facility] Dioxide mEq/L Hospital Laboratory & Pathology: [address] [place] [address] ? ? ? Anion Gap 15 ratio ? Final [facility] Laboratory & Pathology: [address] [place] [address] ? ? ? Calcium 9.5 mg/dL 8.5-10.1 Final [facility] mg/dL Hospital Laboratory & Pathology: [address] [place] [address] ? ? High Glucose 109 mg/dL 74-106 Final [place] [facility] mg/dL [facility] Laboratory & Pathology: [address] [place] [address] ? ? ? Bun 12 mg/dL 7-18 [facility]: [address] [place] [address] ? ? ? Creatinine 0.76 mg/dL 0.55-1.02 [facility] Laboratory & Pathology: [address] [place] [address] ? ? ? BUN/creat 15.8 calc 12.0-20.0 Final [facility] Ratio calc [facility] Laboratory & Pathology: [address] [place] [address] ? ? ? GFR >60 >=60 Final [place] mL/min/1.73 mL/min/1. Hospital m2 73 m2 Laboratory & Pathology: [address] [place] [address] ? ? ? GFR >60 >=60 Final [facility] [place] mL/min/1.73 mL/min/1. Hospital m2 73 m2 Laboratory & Pathology: [address] [place] [address] ? ? ? Total 7.5 g/dL 6.4-8.2 [facility] Protein g/dL [facility] Laboratory & Pathology: [address] [place] [address] ? ? ? Albumin 4.1 g/dL 3.4-5.0 Final [facility] g[facility]dL [facility] Laboratory & Pathology: [address] [place] [address] ? ? ? Globulin 3.4 g/dL ? Final [facility] ge [facility] Laboratory & Pathology: [address] [place] [address] ? ? ? A/g Ratio 1.2 calc 1.1-1.8 Final [facility] Laboratory & Pathology: [address] [place] [address] ? ? ? ALT(SGPT) 27 U/L 14-59 U/L Final [facility] Laboratory & Pathology: [address] [place] [address] ? ? ? Ast (Sgot) 19 U/L 15-37 U/L Final [facility] Laboratory & Pathology: [address] [place] [address] ? ? ? Alk. 75 U/L 41-108 Final [facility] Phosphatase U/L Hospi [facility] Laboratory & Pathology: [address] [place] [address] ? ? ? Total 0.6 mg/dL 0.1-1.2 Final [facility] Bil[facility] Hosp[facility] l Laboratory & Pathology: [address] [place] [address] 03/18/2018 Urease, ? Julissa Test negative ? Final [facility] Qualitative, Hosp ital Tissue Laboratory & Pathology: [address] [place] [address] 02/19/2018 HbA1C ? Hba1C 5.9 % 4.5-6.2 % Final [facility] (Hemoglobin Hospi erick a1C), Blood Labor atory & Pathology: [address] [place] [address] ? ? High Mean Glucose 123 mg/dL 54-115 Final [facility] mg/dL Hospital Laboratory & Pathology: [address] [place] [address] 02/19/2018 Magnesium, ? Magnesium 2.3 mg/dL 1.8-2.4 F inal [facility] Serum or mg/dL Hospital Plasma Laboratory & Pathology: [address] [place] [address] 02/19/2018 CMP, Serum ? Sodium 139 mEq/L 136-145 [facility]L [facility]osp[facility] l Laboratory & Pathology: [address] [place] [address] ? ? ? Potassium 4.1 mEq/L 3.5-5.1 Final [facility] mEq/L Hospital Laboratory & Pathology: [address] [place] [address] ? ? ? Chloride 103 mEq/L 98-107 Final [facility] mEq/L [facility] Laboratory & Pathology: [address] [place] [address] ? ? ? Carbon 25 mEq/L 21-32 Final [facility] D[facility]Eq/L [facility] Laboratory [facility] Pathology: [address] [place] [address] ? ? ? Anion Gap 15 ratio ? Final [facility] Laboratory & Pathology: [address] [place] [address] ? ? ? Calcium 9.4 mg/dL 8.5-10.1 Final [facility] mg/dL Hospital Laboratory [facility] Pathology: [address] [place] [address] ? ? ? Glucose 102 mg/dL 74-106 [facility] Pathology: [address] [place] [address] ? ? ? Bun 8 mg/dL 7-18 Final [facility] Pathology: [address] [place] [address] ? ? ? Creatinine 0.79 mg/dL 0.55-1.02 Final [facility] mg/dL Hospital Laboratory & Pathology: [address] [place] [address] ? ? Low BUN/creat 10.1 calc 12.0-20.0 Final [facility] Ratio calc Hospital Laboratory & Pathology: [address] [place] [address] ? ? ? GFR >60 >=60 Final [facility] mL/min/1.73 mL/min/1. Hospital m2 73 m2 Laboratory & Pathology: [address] [place] [address] ? ? ? GFR >60 >=60 Final [facility] [place] mL/min/1.73 mL/min/1. Hospital m2 73 m2 Laboratory & Pathology: [address] [place] [address] ? ? ? Total 7.6 g/dL 6.4-8.2 Final [facility] Protein g/dL [facility] Laboratory & Pathology: [address] [place] [address] ? ? ? Albumin 4.0 g/dL 3.4-5.0 Final [facility] g[facility]dL [facility] Laboratory & Pathology: [address] [place] [address] ? ? ? Globulin 3.6 g/dL ? Final [facility] ge [facility] Laboratory & Pathology: [address] [place] [address] ? ? ? A/g Ratio 1.1 calc 1.1-1.8 Final [facility] Laboratory & Pathology: [address] [place] [address] ? ? ? ALT(SGPT) 31 U/L 14-59 U/L Final [facility] Laboratory & Pathology: [address] [place] [address] ? ? ? Ast (Sgot) 20 U/L 15-37 U/L Final [facility] Laboratory & Pathology: [address] [place] [address] ? ? ? Alk. 80 U/L 41-108 Final [facility] Phosphatase U/L Hospi erick Laboratory & Pathology: [address] [place] [address] ? ? ? Total 0.5 mg/dL 0.1-1.2 Final [facility] Bilirubin [facility]/dL Hospita l Laboratory & Pathology: [address] [place] [address] 02/19/2018 CBC W/ Auto ? Wbc 7.5 x10^3/uL 4.8-10.8 Final [facility] Diff x10^3/uL [facility] Laboratory & Pathology: [address] [place] [address] ? ? ? Rbc 4.57 3.90-5.03 Final [facility] x10^6/uL x10^6/uL Hospit al Laboratory & Pathology: [address] [place] [address] ? ? ? Hgb 14.2 g/dL 12.0-15.5 Final [facility] g/dL Hospital Laboratory & Pathology: [address] [place] [address] ? ? ? Hct 42.6 % 36.0-46.0 Final [facility] % Hospital Laboratory & Pathology: [address] [place] [address] ? ? ? Mcv 93.2 fL 81.0-99.0 Final [facility] fL [facility] Laboratory [facility] Pathology: [address] [place] [address] ? ? Low Mch 31.1 pg 33.0-36.0 Final [facility] pg [facility] Laboratory [facility] Pathology: [address] [place] [address] ? ? ? Mchc 33.3 g/dL 33.0-36.0 Final [facility] g/dL Hospital Laboratory & Pathology: [address] [place] [address] ? ? ? RDW-CV 13.1 % 11.6-14.8 Final [facility] [facility] % [facility] Laboratory [facility] Pathology: [address] [place] [address] ? ? ? Plt 221 x10^3/uL 150-400 Final [facility] x10^3/uL Hospital Laboratory & Pathology: [address] [place] [address] ? ? ? Neut % 59.1 % 40.0-74.0 Final [facility] [facility] % [facility] Laboratory [facility] Pathology: [address] [place] [address] ? ? ? Lymph % 31.4 % 19.0-48.0 Final [place] [facility] % [facility] Laboratory [facility] Pathology: [address] [place] [address] ? ? ? Moca% 8 % 3-10 % Final [facility] Laboratory & Pathology: [address] [place] [address] ? ? ? Eos% 2 % 1-7 % Final [facility] Laboratory & Pathology: [address] [place] [address] ? ? ? Baso% 1 % 0-2 % Final [facility] Laboratory & Pathology: [address] [place] [address] ? ? ? Neut # 4.40 1.00-7.00 Final [place] [facility] x10^3/uL x10^3/uL Hospit al Laboratory & Pathology: [address] [place] [address] ? ? ? Lymph# 2.34 1.20-3.40 Final [place] [facility] x10^3/uL x10^3/uL Hospit al Laboratory & Pathology: [address] [place] [address] ? ? ? Moca# 0.56 0.10-0.70 Final [facility] x10^3/uL x10^3/uL Hospit al Laboratory & Pathology: [address] [place] [address] ? ? ? Eos # 0.11 0.00-0.70 Final [facility] x10^3/uL x10^3/uL Hospit mt Laboratory & Pathology: [address] [place] [address] ? ? ? Baso # 0.0 x10^3/uL 0.0-0.2 Final [facility] x10^3/uL [facility] Laboratory & Pathology: [address] [place] [address] Past Encounters 06/25/2021 Margie Reyes MD: [address] [place] [address], Ph. Social History Tobacco Smoking Status Current Every Day Smoker Notes: 03/18/19--reports has smoked off an on sin ce age fewcigarettes a day Vaccine List Vaccine Type influenza, unspecified formulation 04/26/2020 pneumococcal polysaccharide PPV23 12/02/2012 Tdap 12/02/2012 Plan of Care Reminders Provider Appointments None ? ? recorded. Lab None ? ? recorded. Referral None ? ? recorded. Procedures None ? ? recorded. Surgeries None ? ? recorded. Imaging None ? ? recorded. Vitals 06/25/2021 02:05PM General Surgery Consult 40 min Height Weight BMI Blood Pressure 162.56 cm 88 kg 33.3 kg/m2 118/64 mm[Hg] 03/18/2019 01:30PM GASTROENTEROLOGY FOLLOW UP Height Weight BMI Blood Pressure 162.56 cm 82.55 kg 31.2 kg/m2 126/68 mm[Hg] 09/03/2018 12:00PM GASTROENTEROLOGY NEW PATIENT Height Weight BMI Blood Pressure 162.56 cm 86.18 kg 32.6 kg/m2 134/68 mm[Hg] 03/05/2018 01:30PM CONSULT Height Weight BMI Blood Pressure 162.56 cm 89.72 kg 34 kg/m2 142/74 mm[Hg]
[2021-06-29 22:56] LABS: Abs Immature Grans 0.06 10^3/uL (0.0-0.06); Absolute Neutrophil Count 11.31 10^3/uL (1.2-6.7); Basophils % 0.1; Eosinophils % 0.4; HCT 43.3 % (36.0-46.0); HGB 14.7 g/dL (11.2-15.7); Immature Grans % 0.4; Lymphocytes % 12.6; MCH 31.3 pg (27.0-33.0); MCHC 33.9 % (32.0-36.0); MCV 92.3 fL (80-95); MPV 8.9 fL (8.0-11.0); Monocytes % 7.2; Neutrophils % 79.3; Nucleated RBC 0 %; Platelet Count 268 10^3/uL (130-400); RBC 4.69 10^6/uL (3.93-5.22); RDW 14.2 % (11.7-14.6); RDW-SD 47.7 fL; WBC 14.26 10^3/uL (4.4-10.8)
[2021-06-29 22:58] LABS: Absolute Basophil Count 0.01 10^3/uL (0.0-0.2); Absolute Eosinophil Count 0.06 10^3/uL (0.0-0.7); Absolute Monocyte Count 1.03 10^3/uL (0.1-0.8)
--- NOTE | 2021-06-29 23:00 | DI.CT_ITS ---
Exam(s) CT ABDOMEN PELVIS W EXAM: CT ABDOMEN PELVIS W CLINICAL HISTORY: abd pain; vomiting. TECHNIQUE: Imaging Protocol: Axial computed tomography images with coronal and sagittal reformatted images were created and reviewed CONTRAST MATERIAL: Intravenous: Omnipaque 350 Contrast volume:100 ml Oral: no COMPARISON: CT CT ABDOMEN PELVIS W from 12/23/2019 FINDINGS: ABDOMEN: Lung Bases: Stable 3 millimeter nodule left lung base. Mild lingular scarring. Liver: Normal density. No measurable mass. Gallbladder and biliary tract: Status post cholecystectomy. No radiodense calculus or dilation. Pancreas: Somewhat atrophic. Normal density, no abnormal calcifications or inflammatory process. Spleen: Normal. Kidneys: Scarring upper pole left kidney. Small cysts. No radiodense stones or obstructive uropathy . No suspicious masses seen. Adrenal glands: No masses seen. Abdominal Aorta: Abdominal portion non-dilated. PELVIS: Bladder: No gross wall thickening. No calculi.No focal mass. Bowel: Mild dilatation of small bowel, nonspecific. Appendix normal. Peritoneal cavity: No ascites, collection or mesenteric inflammatory response. Bones: Degenerative changes. Reproductive organs: Status post hysterectomy. Lymph nodes: Unremarkable. Impression: Mild nonspecific small bowel dilatation. RADIATION DOSE DELIVERED: 1,068.88mGy.cm Total DLP DATA REPOSITORY: All CT scans at this facility are submitted to the National Radiology Data Registry (NRDR) Dose Index Registry (DIR) with the [employer] (ACR). RADIATION OPTIMIZATION: All CT scans at this facility use at least one of these dose optimization te chniques: automated exposure control; mA and/or kV adjustment per patient size (includes targeted exa ms where dose is matched to clinical indication); or iterative reconstruction.
--- NOTE | 2021-06-29 23:08 | ED.GENADUL_ITS ---
Discharge Plan Disposition Patient Disposition: HOME Condition: Improving Discharge Details Clinical Impression: Abdominal pain, Vomiting, Hypokalemia, Hypomagnesemia Primary Care Provider: Eden Davila ED Provider: Garfield Garcia Buckner Meds and New Rx's Prescriptions: New ondansetron 4 mg tablet,disintegrating 4 mg PO Q6H PRNQty: 10 RF: 0 Continued lorazepam 1 mg Tablet 1 mg PO BID RF: 0 bupropion HCl [Wellbutrin XL] 150 mg Tablet Extended Release 24 Hr 150 mg PO BID RF: 0 cholecalciferol (vitamin D3) [Vitamin D3] 2,000 unit Capsule 2,000 unit PO DAILY RF: 0 metoprolol succinate 25 mg Tablet Extended Release 24 Hr 25 mg PO DAILY RF: 0 loratadine [Claritin] 10 mg Tablet 10 mg PO DAILY RF: 0 atorvastatin 20 mg Tablet 20 mg PO HS RF: 0 acetaminophen [Tylenol 8 Hour] 650 mg Tablet Extended Release 650 mg PO BID RF: 0 ascorbic acid (vitamin C) [Vitamin C] 500 mg Tablet 500 mg PO DAILY RF: 0 esomeprazole magnesium [Nexium] 40 mg Capsule,Delayed Release(Dr/Ec) 40 mg PO DAILY RF: 0 magnesium 200 mg Tablet See Rx Instructions .ROUTE .COMPLEX RF: 0 escitalopram oxalate [Lexapro] 20 mg Tablet 20 mg PO DAILY RF: 0 ipratropium-albuterol 0.5 mg-3 mg(2.5 mg base)/3 mL solution for nebulization 3 ml INHALATION TID RF: 0 albuterol sulfate 2.5 mg /3 mL (0.083 %) solution for nebulization 2.5 mg inhalation TID RF: 0 loperamide 2 mg Tablet 2 mg PO Q4H PRNRF: 0 ondansetron 4 mg tablet,disintegrating 4 mg PO BID PRNRF: 0 albuterol sulfate [ProAir HFA] 90 mcg/actuation HFA aerosol inhaler 2 inh INHALATION PRN PRN (Reason: Shortness Of Breath) RF: 0 cyclobenzaprine 5 mg tablet 5 mg PO BID RF: 0 Trelegy Ellipta 100-62.5-25 mcg blister with device 1 inh INHALATION QAM RF: 0 Aimovig Autoinjector 140 mg/mL Auto-Injector 140 mg SUBCUT QMONTH RF: 0 ropinirole 1 mg tablet 1 mg PO HS RF: 0 folic acid 1 mg tablet 1 mg PO DAILY RF: 0 Discharge Instructions Instructions: Abdominal Pain (ED) Additional Instructions: Rogers diet for the rest of the weekend starting with clear liquids until tolerated. Follow-up with primary care early next week if continued problems. Return to ED for new or worsening pain, persistent vomiting, fever. Referrals: Eden Davila [Primary Care Provider] - Discharge Data Discharge Date/Time-TO BE ENTERED AT DEPARTURE: 06/30/21 03:07 Medical Decision Making Patient presenting with vomiting, diarrhea, abdominal pain which she reports similar to previous episodes of gastroparesis related symptoms. She is lying on her side moaning but her abdominal exam is benign. IV established and fluids started. Phenergan and morphine ordered for symptoms. Laboratory studies and CT scan ordered. Patient white count is normal. Chemistry significant for hypokalemia and hypomagnesemia which she has had previously. Liver function and lipase are normal. Urine with straight cath and has a few red cells but otherwise no evidence of infection. CT scan shows no evidence of obstruction or other acute pathology. On reevaluation patient still complaining of some abdominal pain. She is ordered for repeat dose of morphine. Continuing on fluids and replacement of potassium and magnesium. Will reevaluate once electrolytes has been replenished. Patient feeling better after fluids, meds, lyte replenished. Patient will be discharged home to follow up with PCP next week. Lab Data Lab results reviewed: Yes I reviewed the patient's lab results. HPI General Mode of arrival: EMS . Date/Time Provider Initiated Documentation: 06/29/21 23:08 . Limitations to Documentation: no limitations . Information obtained by: patient, RN notes reviewed and old records reviewed . HPI Narrative: Patient presents to the ED with complaint of vomiting, diarrhea, diffuse abdominal pain for 3 days now. Patient reports history of same, apparently related to gastroparesis. She has had multiple previous surgeries. She denies bloody emesis or stool. She reports decreased urine output. She denies fever, cough, chest pain, shortness of breath. Abdominal pain is constant and radiates to the back to some degree. Related Data Home Medications Medication Instructions Recorded Confirmed atorvastatin 20 mg PO HS 01/16/19 06/29/21 bupropion HCl [Wellbutrin XL] 150 mg PO BID 01/16/19 06/29/21 cholecalciferol (vitamin D3) 2,000 unit PO DAILY 01/16/19 06/29/21 [Vitamin D3] loratadine [Claritin] 10 mg PO DAILY 01/16/19 06/29/21 lorazepam 1 mg PO BID 01/16/19 06/29/21 metoprolol succinate 25 mg PO DAILY 01/16/19 06/29/21 Aimovig Autoinjector 140 mg SUBCUT QMONTH 11/17/19 06/29/21 Trelegy Ellipta 1 inh INHALATION QAM 11/17/19 06/29/21 albuterol sulfate [ProAir HFA] 2 inh INHALATION PRN PRN 11/17/19 06/29/21 cyclobenzaprine 5 mg PO BID 11/17/19 06/29/21 loperamide 2 mg PO Q4H PRN 11/17/19 06/29/21 ondansetron 4 mg PO BID PRN 11/17/19 06/29/21 acetaminophen [Tylenol 8 Hour] 650 mg PO BID 12/23/19 06/29/21 ascorbic acid (vitamin C) [Vitamin 500 mg PO DAILY 12/23/19 06/29/21 C] escitalopram oxalate [Lexapro] 20 mg PO DAILY 12/23/19 06/29/21 esomeprazole magnesium [Nexium] 40 mg PO DAILY 12/23/19 06/29/21 magnesium See Rx Instructions .ROUTE .COMPLEX 12/23/19 06/29/21 albuterol sulfate 2.5 mg INHALATION TID 02/18/20 06/29/21 ipratropium-albuterol 3 ml INHALATION TID 02/18/20 06/29/21 folic acid 1 mg PO DAILY 06/29/21 06/29/21 ropinirole 1 mg PO HS 06/29/21 06/29/21 ondansetron 4 mg PO Q6H PRN #10 tab 06/30/21 Previous Rx's Medication Instructions Recorded ondansetron 4 mg PO Q6H PRN #10 tab 06/30/21 Allergies Allergy/AdvReac Type Severity Reaction Status Date / Time NSAIDS (Non-Steroidal Allergy Unverified 06/29/21 22:49 Anti-Inflamma Penicillins Allergy Unverified 06/29/21 22:49 aspirin AdvReac Unverified 12/17/21 22:49 General Stated Complaint: Nausea/Vomit/Diar KIERA: 3 Review of Systems Narrative: As documented in HPI otherwise negative as below. Const: no fever, chills, weakness Resp: no cough, SOB, pleuritic pain CV: no CP, diaphoresis, edema, syncope GI: abdominal pain, nausea, vomiting, diarrhea Neuro: no headache, numbness, focal weakness, confusion PFSH All Active Problems (Updated 06/30/21 @ 02:59 by Garfield Garcia MD) Abdominal pain (Acute) Vomiting (Acute) Hypokalemia (Acute) Hypomagnesemia (Acute) Medical History (Updated 06/30/21 @ 02:59 by Garfield Garcia MD) Chronic pain syndrome Gastroparesis History of IBS HTN (hypertension) Peptic ulcer disease Surgical History (Updated 06/30/21 @ 02:22 by Garfield Garcia MD) H/O section H/O shoulder surgery History of appendectomy History of tonsillectomy and adenoidectomy S/P cholecystectomy S/P hysterectomy Social History Smoking/Tobacco Use Status: Current every day Tobacco Type: cigarettes and e- cigarettes Smoking risk assessment performed?: Yes Alcohol Intake: never Drug use: Never Substance use type: does not use Do you feel safe at home: Yes Do you feel safe in your relationship?: Yes Exam Narrative Exam Narrative: Const: Obese female lying on side moaning. HEENT: NC/AT. Normal facial exam. Eyes: Normal conjunctiva and sclera. Neck: Supple. Trachea midline. Lungs: Normal respiratory effort. Lungs are clear. Cor: RRR without murmur/gallop. Good radial pulses. GI: Soft. NT/ND. No guarding or rebound, no peritoneal signs. Neuro: A+O x 3. Normal speech, mentation, gait. Cranial nerves II - XII grossly intact. No gross motor or sensory deficit. Ext: No C/C/E. Skin: Warm and dry without rash. Course Vital Signs Vital signs: Vital Signs Temperature 97.0 F L 06/29/21 22:46 Pulse 111 H 06/29/21 22:46 Respiratory Rate 18 06/29/21 22:46 Pulse Oximetry 94 06/29/21 22:46 Temperature 97.0 F L 06/29/21 22:46 Pulse 111 H 1217/21 22:46 Respiratory Rate 18 06/29/21 22:46 Respiratory Effort Non-Labored 06/29/21 23:00 Pulse Oximetry 94 06/29/21 22:46 Oxygen Delivery Method Room Air 06/29/21 22:46 Oxygen Flow Rate 0 06/29/21 22:46 Pain Level 10 06/29/21 22:46 Lab/Test Results Lab/Test Results: Laboratory Tests Range/Units 06/29/21 22:50 WBC (4.4-10.8) 10^3/uL 14.26 H RBC (3.93-5.22) 10^6/uL 4.69 Hgb (11.2-15.7) g/dL 14.7 Hct (36.0-46.0) % 43.3 MCV (80-95) fL 92.3 MCH (27.0-33.0) pg 31.3 MCHC (32.0-36.0) % 33.9 RDW (11.7-14.6) % 14.2 Plt Count (130-400) 10^3/uL 268 MPV (8.0-11.0) fL 8.9 Immature Gran % 0.4 Neutrophils % 79.3 Lymphocytes % 12.6 Monocytes % 7.2 Eosinophils % 0.4 Basophils % 0.1 Nucleated RBC % % 0 Absolute Neutrophils (1.2-6.7) 10^3/uL 11.31 H Absolute Lymphocytes (1.2-3.4) 10^3/uL 1.80 Absolute Monocytes (0.1-0.8) 10^3/uL 1.03 H Absolute Eosinophils (0.0-0.7) 10^3/uL 0.06 Absolute Basophils (0.0-0.2) 10^3/uL 0.01
[2021-06-29 23:17] LABS: ALT 38 U/L (14-59); AST 37 U/L (15-37); Albumin 3.9 g/dL (3.4-5.0); Alkaline Phosphatase 81 U/L (46-116); Anion Gap 14.4 mmol/L (3-11); BUN 10 mg/dL (7-18); Bilirubin, Total 1.1 mg/dL (0.2-1.0); CO2 23.6 mmol/L (21.0-32.0); CREATININE 0.9 mg/dL (0.55-1.02); Calcium 8.9 mg/dL (8.5-10.1); Chloride 99 mmol/L (98-107); Glucose 148 mg/dL (74-106); Magnesium 1.6 mg/dL (1.8-2.4); Sodium 137 mmol/L (136-145); Total Protein 7.6 g/dL (6.4-8.2); Troponin I < 50 ng/L (<or=60)
[2021-06-29 23:19] LABS: Potassium 2.8 mmol/L (3.5-5.1)
[2021-06-29 23:25] LABS: Lipase 46 U/L (73-393)
[2021-06-29 23:31] LABS: Bilirubin Moderate (Negative); Blood Moderate (Negative); Clarity Sl Cloudy (Clear); Glucose Negative (Negative); Ketones Trace mg/dL (Negative); Leukocyte Esterase Negative (Negative); Nitrite Negative (Negative); Specific Gravity >= 1.030 (1.005-1.025); Urobilinogen 0.2 EU/dL (Up TO 0.2)
[2021-06-29 23:36] LABS: Bacteria Few HPF (Negative); C & S Indicated? No; Casts 0-2 Hyaline LPF (Negative); Crystals Negative HPF (Negative); Epithelial Cells Few HPF (Negative); Mucus Negative (Negative); WBC Negative HPF (0-5)
[2021-06-29] MEDS: FAMOTIDINE 20 MG/50 ML BAG 100 MG IVPB (23:36)
[2021-06-29] MEDS: Normal Saline 1,000 ML 1000 ML IV (23:40)
[2021-06-29] MEDS: MORPHine 10 MG/ML VIAL 2 MG IVP (23:45)
[2021-06-30] VITALS (14 sets, daily range): BP systolic 152–172; BP diastolic 75–96; PULSE 98–114; RESP 17–27; O2SAT 92–96
[2021-06-30] MEDS: Omnipaque 350 MG/ML 100 ML BTL IJ (00:01)
[2021-06-30] MEDS: POTASSIUM CHLORIDE 10 MEQ/100 ML BAG 100 MEQ IVPB ×2 (00:45→01:44)
[2021-06-30] MEDS: MAGNESIUM SULFATE 1 GM/100 ML BAG IVPB (00:46)
--- NOTE | 2021-06-30 00:53 | DI.VRAD_ITS ---
PROCEDURE INFORMATION: Exam: CT Abdomen And Pelvis With Contrast Exam date and time: 06/29/2021 11:14 PM Age: 55 years old Clinical indication: Other: Pain, n/v/d, HX ibs TECHNIQUE: Imaging protocol: Computed tomography of the abdomen and pelvis with contrast. COMPARISON: CT ABDOMEN PELVIS W 12/23/2019 8:23 PM FINDINGS: Lungs: Again noted are regions of mild scarring/atelectasis within the lingula and right middle lobe. There is a stable 3 mm posterior basilar left lower lobe nodule consistent with benign etiology. Liver: Normal. No mass. Gallbladder and bile ducts: There has been a cholecystectomy. There is mild biliary ductal dilatation, improved from prior study, likely related to the prior cholecystectomy. Pancreas: The pancreas is moderately atrophic but appears otherwise unremarkable without focal lesion or evidence of acute inflammation. Spleen: Normal. No splenomegaly. Adrenal glands: Normal. No mass. Kidneys and ureters: There is a focal region of scarring within the posterior aspect of the upper pole of the left kidney in the region of a prior larger wedge-shaped hypodense lesion, suggesting sequela of prior infarct in this region.There are multiple subcentimeter low-dense renal lesions which are too small to characterize but likely represent benign cysts. No renal or ureteral stones are identified. There is no hydronephrosis or hydroureter. Stomach and bowel: Again noted are scattered borderline dilated loops of fluid-filled small bowel, similar to prior study, which could represent mild enteritis with mild ileus. The colon appears unremarkable. Appendix: No evidence of appendicitis. Intraperitoneal space: Unremarkable. No free air. No significant fluid collection. Vasculature: The aorta and iliac arteries demonstrate moderate atherosclerotic calcification without aneurysm formation. Lymph nodes: Unremarkable. No enlarged lymph nodes. Urinary bladder: No bladder stones are identified. There is a new bladder catheter in place. The bladder is nearly completely collapsed. Reproductive: There has been a hysterectomy. Bones/joints: Again noted is multilevel [id number] spondylosis throughout the lower thoracic and lumbar spine. No acute fractures are identified. Soft tissues: Unremarkable. IMPRESSION: 1. Scattered borderline dilated loops of fluid-filled small bowel, similar to prior study, could represent mild enteritis with mild ileus. 2. Status post cholecystectomy and hysterectomy. 3. 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 Dictated and Authenticated by: Jeb Lew MD. Ordering:AMANDA Merrill MD
== END 2021-06-30 03:07 | disposition home or self-care (01) ==
PROVIDERS: Emergency Provider Emergency Medicine; PCP Registered Nurse
DX: R11.2 Nausea with vomiting, unspecified (principal); R10.9 Unspecified abdominal pain; E87.6 Hypokalemia; E83.42 Hypomagnesemia; R19.7 Diarrhea, unspecified; I10 Essential (primary) hypertension
CPT/HCPCS: 51701; 80053; 81025; 83690; 96361; 96365; 96366; 96375; 99285; 74177; 81003; 81015; 83735; 84484; 85025; 99284; J2270; J3475; J3480; J3490

== ENCOUNTER 2022-03-11 04:43 | Outpatient (CLI) | payer MEDICAID, SELFPAY ==
--- NOTE | 2022-03-11 13:15 | RT.EKG_ITS ---
APPROVED REPORT Exam: Resting ECG Reason for Exam: adverse effect of macrolides, initial encounter Patient Location: O HR:76 bpm ECG Measurements Heart Rate 76 AXIS OK 190 P 79 QRSd 91 QRS 42 QT 453 T 61 QTc 510 Conclusion Sinus rhythm...normal P axis, V-rate 50- 99 Borderline prolonged QT interval...QTc >485mS
== END 2022-03-11 04:44 | disposition home or self-care (01) ==
LOC: RT 04:43
PROVIDERS: PCP Registered Nurse; Visit Provider Internal Medicine Pulmonary Disease
DX: T36.3X5A Adverse effect of macrolides, initial encounter (principal); R09.89 Other specified symptoms and signs involving the circulatory and respiratory systems
CPT/HCPCS: 93005; 93010

== ENCOUNTER → 2022-03-28 01:37 | Outpatient (CLI) | payer MEDICAID, SELFPAY ==
--- NOTE | 2022-03-28 13:43 | DI.CTLCSR_ITS ---
Exam(s) CT CHEST LUNG CANCER SCREEN EXAM: CT CHEST LUNG CANCER SCREEN CLINICAL HISTORY: BASELINE SCREENING, CURRENT SMOKER, F17.210 TECHNIQUE: Imaging Protocol: Axial computed tomography images with coronal and sagittal reformatted images were created and reviewed COMPARISON: CT CT CHEST PE ABD PELVIS W from 11/17/2019 FINDINGS: Tracheobronchial tree: Patent where visualized. Pulmonary parenchyma: No consolidation or dominant measurable mass. No architectural distortion. Lung Nodules: There is a stable 3 mm pleural based nodule in the medial aspect of the right lower lob e. There is a stable 3 mm nodule in the anterior lateral aspect of the left. There is a stable 3 mm nodule in the left upper lobe. There is a stable 3 mm nodule in the left lower lobe. Mediastinum and Nkechi: No dominant adenopathy or fluid collection. The esophagus is unremarkable. Thyroid gland: Unremarkable. Lymph nodes: Unremarkable. Pleura: No effusion or pneumothorax. Heart: The heart is not dilated. Mild coronary artery calcification. No pericardial effusion. Aorta: Thoracic aorta non-dilated.Atherosclerosis is present. Upper abdomen: Status post cholecystectomy. Soft Tissues: Unremarkable. Bones: Within normal limits. IMPRESSION: Stable pulmonary nodules as described. Lung RADS Cat 2 - Benign Appearance / Behavior: Nodules with a very low likelihood of becoming a clin ically active cancer due to size or lack of growth Lung-RADS 1.0 CATEGORIES: Category 0 - Prior chest CT exam(s) being located for comparison. Category 1 - Annual screening in 12 months. No nodules or definitely benign nodules. Category 2 - Annual screening in 12 months. Benign appearance. Nodules with low likelihood of becomin g active cancer. Category 3 - 6-month follow-up. Probably benign. Short-term follow-up suggested. Nodules with low lik elihood of becoming active cancer. Category 4A - 3-month follow-up and CT/PET if >8 mm in size. Suspicious finding. Findings which requi re additional testing. Category 4B - Findings which require additional testing and tissue sampling. Suspicious finding. Category 4X - Category 3 or 4 nodules with additional features or imaging findings that increases the suspicion of malignancy. Modifier S- Potentially clinically significant finding. (Non lung cancer) RADIATION DOSE DELIVERED: 77.14mGy.cm Total DLP 1.84mGy CTDIvol 77.14mGy.cm Total DLP 1.84mGy CTDIvol DATA REPOSITORY: All CT scans at this facility are submitted to the National Radiology Data Registry (NRDR) Dose Index Registry (DIR) with the [employer] (ACR). RADIATION OPTIMIZATION: All CT scans at this facility use at least one of these dose optimization te chniques: automated exposure control; mA and/or kV adjustment per patient size (includes targeted exa ms where dose is matched to clinical indication); or iterative reconstruction.
== END ==
PROVIDERS: PCP Registered Nurse; Visit Provider Internal Medicine Pulmonary Disease
DX: Z12.2 Encounter for screening for malignant neoplasm of respiratory organs (principal); F17.210 Nicotine dependence, cigarettes, uncomplicated; R91.8 Other nonspecific abnormal finding of lung field
CPT/HCPCS: 71271

== ENCOUNTER 2022-09-18 09:12 | Outpatient (CLI) | payer MEDICAID, SELFPAY ==
--- NOTE | 2022-09-18 06:00 | DI.RAD_ITS ---
Exam(s) XR PAIN CLINIC SACRIOILIAC 2V EXAM: XR PAIN CLINIC SACRIOILIAC 2V CLINICAL HISTORY: Dx: Sacroiliac Joint Dysfunction. TECHNIQUE: Fluoroscopy was provided for the referring physician for guidance with performing pain cl inic injection procedure. COMPARISON: No exams were available for comparison FINDINGS: Please see procedure note for details. Fluoro time: 33.8 seconds RADIATION DOSE DELIVERED: Ka,r=10.78 mGy
[2022-09-18 09:27] VITALS: BP 126/84; PULSE 94; RESP 20; TEMP 36.8; O2SAT 95
[2022-09-18] MEDS: Omnipaque 240 MG/ML 50 ML BTL IJ (10:20)
[2022-09-18] MEDS: methylPREDNISolone ACETATE 80 MG/ML VIAL IJ (10:22)
[2022-09-18 10:25] VITALS: BP 119/66; PULSE 80; RESP 21; O2SAT 95
--- NOTE | 2022-09-18 13:07 | PDOC.PAIN ---
Date of service: 09/18/22 Time of Service: 10:00 Pain Clinic Procedure Note Procedure Note Procedure Note: INTRA-ARTICULAR SI JOINT INJECTION Beverley Starr has been referred to the [facility] for intra-articular SI joint injection. COMMENTS: She was previously evaluated and this procedure was recommended. She continues to have pain directly over the bilateral sacroiliac joints. Dx: Bilateral sacroiliac joint dysfunction Pre-procedure pain VAS was 10/10. Patient was interviewed and the medical record reviewed. There were no medical, pharmacologic, radiographic or other structural contraindications to attempting fluoroscopically guided intra-articular SI joint injection. Risks and expected side effects as well as potential benefit of the procedure were reviewed and voiced concerns addressed. The printed consent form was signed and witnessed. Standard time-out procedure was performed. Patient was placed in the prone position on the fluoroscopy table and automated blood pressure cuff and pulse oximeter applied. The skin entry point for approaching the bilateral SI joints was identified under the most advantageous fluoroscopic view and marked. Following thorough Chlorhexadine preparation of the skin and draping and 1% lidocaine infiltration of the skin entry point and subcutaneous tissues, a 22 gauge 3.5 spinal needle was placed under fluoroscopic guidance into the the bilateral SI joints was identified under the most advantageous fluoroscopic view and marked. Intra-articular placement was confirmed by a clear arthrogram resulting from the injection of 0.25ml Omnipaque 240, 1ml 1% lidocaine, and 40mg Depomedrol were injected intra-articularily with an initial reproduction of a significant component of the usual pain. Vital signs were stable throughout the procedure and were as recorded in the docflowsheet by the nursing staff. If given, dosages of intravenous drugs for anxiolysis and analgesia were documented in MAR. Follow up plans and appointments were discussed with the patient. Post procedure instruction was given as documented in nursing documentation and having met discharge criteria, and was discharged from the [facility]. COMMENTS: This procedure can be completed up to 3 times per 12 months if found to be effective. Post-procedure pain VAS score was 7/10. Wilber Gupta DO, MPH [facility]-Pain Management [facility] CC: Eden Davila
== END 2022-09-18 09:13 | disposition home or self-care (01) ==
LOC: PC 09:12
PROVIDERS: PCP Registered Nurse; Visit Provider Preventive Medicine Occupational Medicine
DX: M53.3 Sacrococcygeal disorders, not elsewhere classified (principal)
CPT/HCPCS: 27096; 72200; J1040; Q9967

== ENCOUNTER → 2023-06-17 00:42 | Outpatient (CLI) | payer MEDICAID, SELFPAY ==
--- NOTE | 2023-06-17 08:15 | DI.US_ITS ---
Exam(s) US NEEDLE LOCAL OTHER WO RAD EXAM: US NEEDLE LOCAL OTHER WO RAD CLINICAL HISTORY: Right parotid mass,ultrasound guided bx,k11.8. COMPARISON: No exams were available for comparison TECHNIQUE: Ultrasound was provided for Dr. Cohen for guidance with performing FNA of right parotid lesion. FINDINGS: Please see procedure note for details DATA REPOSITORY:
--- NOTE | 2023-06-17 12:45 | PAPNONF_PTH ---
PATIENT: Beverley Starr LOC: [facility] U#:[id number] AGE/SX: 60/F ROOM: RE06/17/[address]: Pernell Cohen MD : [id number] BED: DIS: SPEC #: [id number] RECD: 06/17/23 13:06 STATUS: LISSETTE REMaureen #: [id number] DANY: 06/17/23 12:[address]: Pernell Cohen DEPT: [facility] Cytology RECD BY: Rosa Steven ENTERED: 06/17/23 13:07 SP TYPE: AUDRA GREENFIELD DR: Eden Davila Tissues: 1 - BODY FLUID CYTO-FINE NEEDLE [facility]IRATE[facility] Procedures: BODY FLUID CYTO-FINE NEEDLE ASPIRATE[facility] Comments: [id number] (PATH FNA CONSULT) (REFRIGERATED)
--- NOTE | 2023-06-17 13:01 | W.PROCNOTE ---
Date of service: 06/17/23 Time of Service: 13:01 Procedure Note Date of procedure: 07/16/23 Procedure: Right parotid ultrasound-guided FNA, pathology present Procedure Diagnosis: 1.2 cm parotid nodule Procedure Indications: The patient has a right-sided parotid nodule of unclear etiology. It is not palpable. Options were explained to the patient regarding further management. Risks including bleeding, infection, damage to the facial nerve, not answer, and need for further treatment were discussed at length. Written consent was obtained. The below was then performed. Procedure Description: The patient was positioned in supine position with her head turned to the left. Ultrasound was used to localize the nodule after the patient was prepped and draped in appropriate fashion. 1% lidocaine with 1/100,000 epinephrine was injected over the nodule in the subcutaneous and overlying deeper tissues. A 25-gauge needle was then passed repeatedly into the thyroid nodule. A total of 3 different passes were made. Specimen was examined revealing significant amounts of what appeared to be myxoid or mucinous material. Cellularity appeared fairly low, but a significant amount of the material was placed into CytoLyt. After accumulating what appeared to be an adequate amount of tissue, the site was examined revealing no significant bleeding and no bruising. Sterile dressing was applied. The patient was then allowed to sit and then stand and ambulate. Her vital signs remained stable. The specimen was sent to pathology. She will remove the bandage after an hour and not replace it. She will call with any signs of infection or if she does not hear from me with regard to pathology results within 1 week. She had no further questions. She is comfortable with this plan. She may use Tylenol for discomfort.
== END ==
PROVIDERS: PCP Registered Nurse; Visit Provider Otolaryngology
DX: K11.8 Other diseases of salivary glands (principal)
CPT/HCPCS: 10005; 76942; 88104